=== PATIENT | female | born 1965 | race Caucasian/White ===

== ENCOUNTER 2017-03-27 12:37 | Inpatient (IN) | payer MEDICARE ==
[~2017-03-27] VITALS: Ht 157.5 cm; Wt 130.4 kg
[2017-03-27] VITALS (10 sets, daily range): BP systolic 124–145; BP diastolic 61–82; PULSE 89–110; RESP 15–20; TEMP 98.2–98.7; O2SAT 93–99
[~2017-03-27 12:37] MED LIST: ALBU2.5I INH; ALLE10TA5 PO; ALPR1TAB3 PO; ATEN-100 PO; BENZ100 PO; CARI350T19 PO; CEFU1TAB43 PO; LEVA500T PO; LORT7.5T3 PO; OMPR20CCR PO; PRED10PA PO; SUMA50 PO; ZOLO50TA PO
--- NOTE | 2017-03-27 12:50 | PD ---
HPI Chief Complaint: Respiratory Symptoms Time Seen by Provider: 12:50 Travel History International Travel<30 days: No Contact w/Intl Traveler<30days: No Traveled to known affect area: No History of Present Illness HPI 51-year-old female with history of seizure disorder, COPD, arthritis, obesity, presents to emergency department for evaluation of worsening shortness of breath. Patient states over the last week she has had worsening shortness of breath and a productive cough. She states today she developed a sharp left- sided chest pain with associated dizziness. States this is typically not how her COPD exacerbations act. She contacted [facility]. En route she has had 125 mg of Solu-Medrol IV, 3 DuoNeb treatments without any relief of her respiratory symptoms.. States she has felt febrile and chilled. Nauseous without vomiting. Currently the patient states she is not having any pain. She has no other symptoms to report. PFSH Past Medical History Anemia: Yes Arthritis: Yes Asthma: Yes Anxiety: Yes Heart Rhythm Problems: Yes (HX OF PSVT) COPD: Yes Diminished Hearing: No Gastrointestinal Disorders: Yes (IBS) Immunizations Current: Yes Seizures: Yes Sleep Apnea: Yes : 4 Para: 2 Miscarriage: 1 : 1 Ovarian Cysts: Yes Dilation and Curettage (D&C): Yes () Tubal Ligation: Yes (1994) Past Surgical History Neurologic Surgery: Yes (CYST ON THE CEREBELLUM ) Social History Alcohol Use: No Tobacco Use: Yes (TRYING TO QUIT) Substance Use: No Allergies-Medications (Allergen,Severity, Reaction): Uncoded Allergies: CODIENE (Allergy, Mild, VOMITTING, 03/27/17) Reported Meds & Prescriptions Reported Meds & Active Scripts Active Reported Albuterol Neb (Albuterol Sulfate) 2.5 Mg/3 Ml Neb 2.5 Mg NEB Q4HR NEB PRN Alprazolam 1 Mg Tab 1 Mg PO BID Tenormin (Atenolol) 50 Mg Tab 50 Mg PO HS Omeprazole 20 Mg Tab 20 Mg PO DAILY Sertraline (Sertraline HCl) 100 Mg Tab 100 Mg PO DAILY Imitrex (Sumatriptan Succinate) 100 Mg Tab 100 Mg PO ONCE PRN If a satisfactory response has not been obtained at 2 hours, a second dose may be administered Ventolin Hfa 18 GM Inh (Albuterol Sulfate) 90 Mcg/Act Aer 2 Puff INH Q4-6H PRN Gabapentin 300 Mg Cap 300 Mg PO TID Phenergan (Promethazine HCl) 25 Mg Tablet 25 Mg PO Q8HR PRN Tessalon Perles (Benzonatate) 100 Mg Cap 100 Mg PO TID PRN Benadryl Allergy (Diphenhydramine HCl) 25 Mg Tablet 25 Mg PO BID PRN Mapap (Acetaminophen) 500 Mg Tab 500 Mg PO Q4HR Review of Systems Except as stated in HPI: all other systems reviewed are Neg Physical Exam Narrative GENERAL: Obese female patient, sitting up in bed, slightly tripodded, but in no acute distress. Pt has a barking, non-productive cough SKIN: Focused skin assessment warm/dry. HEAD: Atraumatic. Normocephalic. EYES: Pupils equal and round. No scleral icterus. No injection or drainage. ENT: No nasal bleeding or discharge. Mucous membranes pink and moist. NECK: Trachea midline. No JVD. CARDIOVASCULAR: Elevated rate and rhythm. No murmur appreciated. RESPIRATORY: No accessory muscle use. Diminished, coarse, inspiratory and expiratory wheezes throughout. Breath sounds equal bilaterally. GASTROINTESTINAL: Abdomen soft, non-tender, nondistended. Hepatic and splenic margins not palpable. MUSCULOSKELETAL: No obvious deformities. No clubbing. No cyanosis. No edema. NEUROLOGICAL: Awake and alert. No obvious cranial nerve deficits. Motor grossly within normal limits. Normal speech. PSYCHIATRIC: Appropriate mood and affect; insight and judgment normal. Data Data Last Documented VS Vital Signs Date Time Temp Pulse Resp B/P Pulse Ox O2 Delivery O2 Flow Rate FiO2 03/27/17 12:58 98.7 89 16 134/73 Room Air 03/27/17 12:58 98 2 03/27/17 12:53 21 Orders Complete Blood Count With Diff (03/27/17 12:49) Basic Metabolic Panel (Bmp) (03/27/17 12:49) B-Type Natriuretic Peptide (03/27/17 12:49) Act Partial Throm Time (Ptt) (03/27/17 12:49) Prothrombin Time / Inr (Pt) (03/27/17 12:49) Ckmb (Isoenzyme) Profile (03/27/17 12:49) Troponin I (03/27/17 12:49) Urinalysis - C+S If Indicated (03/27/17 12:49) Iv Access Insert/Monitor (03/27/17 12:49) Electrocardiogram (03/27/17 12:49) Ecg Monitoring (03/27/17 12:49) Oximetry (03/27/17 12:49) Oxygen Administration (03/27/17 12:49) Chest, Single Ap (03/27/17 12:49) Sodium Chloride 0.9% Flush (Ns Flush) (03/27/17 13:00) Albuterol-Ipratropium Neb (Duoneb Neb) (03/27/17 14:00) Arterial Blood Gas (Abg) (03/27/17 ) Albuterol-Ipratropium Neb (Duoneb Neb) (03/27/17 14:45) Admit Order (Ed Use Only) (03/27/17 16:06) Labs Laboratory Tests Test 03/27/17 03/27/17 13:10 14:05 White Blood Count 7.3 TH/MM3 Red Blood Count 4.08 MIL/MM3 Hemoglobin 12.1 GM/DL Hematocrit 35.7 % Mean Corpuscular Volume 87.5 FL Mean Corpuscular Hemoglobin 29.6 PG Mean Corpuscular Hemoglobin 33.8 % Concent Red Cell Distribution Width 18.0 % Platelet Count 126 TH/MM3 Mean Platelet Volume 8.9 FL Neutrophils (%) (Auto) 59.1 % Lymphocytes (%) (Auto) 27.1 % Monocytes (%) (Auto) 6.4 % Eosinophils (%) (Auto) 6.3 % Basophils (%) (Auto) 1.1 % Neutrophils # (Auto) 4.3 TH/MM3 Lymphocytes # (Auto) 2.0 TH/MM3 Monocytes # (Auto) 0.5 TH/MM3 Eosinophils # (Auto) 0.5 TH/MM3 Basophils # (Auto) 0.1 TH/MM3 CBC Comment DIFF FINAL Differential Comment Prothrombin Time 10.7 SEC Prothromb Time International 1.0 RATIO Ratio Activated Partial 28.0 SEC Thromboplast Time Sodium Level 139 MEQ/L Potassium Level 3.7 MEQ/L Chloride Level 103 MEQ/L Carbon Dioxide Level 28.2 MEQ/L Anion Gap 8 MEQ/L Blood Urea Nitrogen 7 MG/DL Creatinine 0.86 MG/DL Estimat Glomerular Filtration 70 ML/MIN Rate Random Glucose 122 MG/DL Calcium Level 8.7 MG/DL Total Creatine Kinase 79 U/L Troponin I LESS THAN 0.02 NG/ML B-Type Natriuretic Peptide 17 PG/ML Blood Gas Puncture Site RT BRACHIAL Blood Gas Patient Temperature 98.6 Blood Gas HCO3 29 mmol/L Blood Gas Base Excess 4.3 mmol/L Blood Gas Oxygen Saturation 88 % Arterial Blood pH 7.42 Arterial Blood Partial 44 mmHg Pressure CO2 Arterial Blood Partial 58 mmHG Pressure O2 Arterial Blood Oxygen Content 14.5 Vol % Arterial Blood 1.9 % Carboxyhemoglobin Arterial Blood Methemoglobin 0.6 % Blood Gas Hemoglobin 11.7 G/DL Oxygen Delivery Device RA SIDDIQUI Medical Decision Making Medical Screen Exam Complete: Yes Emergency Medical Condition: Yes Medical Record Reviewed: Yes Differential Diagnosis COPD exacerbation versus pneumonia versus influenza versus CHF exacerbation versus neoplasm Narrative Course 51 year-old female presents to the emergency department for evaluation COPD exacerbation. Laboratory Tests Test 03/27/17 03/27/17 13:10 14:05 White Blood Count 7.3 TH/MM3 Red Blood Count 4.08 MIL/MM3 Hemoglobin 12.1 GM/DL Hematocrit 35.7 % Mean Corpuscular Volume 87.5 FL Mean Corpuscular Hemoglobin 29.6 PG Mean Corpuscular Hemoglobin 33.8 % Concent Red Cell Distribution Width 18.0 % Platelet Count 126 TH/MM3 Mean Platelet Volume 8.9 FL Neutrophils (%) (Auto) 59.1 % Lymphocytes (%) (Auto) 27.1 % Monocytes (%) (Auto) 6.4 % Eosinophils (%) (Auto) 6.3 % Basophils (%) (Auto) 1.1 % Neutrophils # (Auto) 4.3 TH/MM3 Lymphocytes # (Auto) 2.0 TH/MM3 Monocytes # (Auto) 0.5 TH/MM3 Eosinophils # (Auto) 0.5 TH/MM3 Basophils # (Auto) 0.1 TH/MM3 CBC Comment DIFF FINAL Differential Comment Prothrombin Time 10.7 SEC Prothromb Time International 1.0 RATIO Ratio Activated Partial 28.0 SEC Thromboplast Time Sodium Level 139 MEQ/L Potassium Level 3.7 MEQ/L Chloride Level 103 MEQ/L Carbon Dioxide Level 28.2 MEQ/L Anion Gap 8 MEQ/L Blood Urea Nitrogen 7 MG/DL Creatinine 0.86 MG/DL Estimat Glomerular Filtration 70 ML/MIN Rate Random Glucose 122 MG/DL Calcium Level 8.7 MG/DL Total Creatine Kinase 79 U/L Troponin I LESS THAN 0.02 NG/ML B-Type Natriuretic Peptide 17 PG/ML Blood Gas Puncture Site RT BRACHIAL Blood Gas Patient Temperature 98.6 Blood Gas HCO3 29 mmol/L Blood Gas Base Excess 4.3 mmol/L Blood Gas Oxygen Saturation 88 % Arterial Blood pH 7.42 Arterial Blood Partial 44 mmHg Pressure CO2 Arterial Blood Partial 58 mmHG Pressure O2 Arterial Blood Oxygen Content 14.5 Vol % Arterial Blood 1.9 % Carboxyhemoglobin Arterial Blood Methemoglobin 0.6 % Blood Gas Hemoglobin 11.7 G/DL Oxygen Delivery Device RA Last Impressions Chest X-Ray 03/27/17 1249 Signed Impressions: Service Date/Time: March 13:21 - CONCLUSION: Normal examination. Fabián Mesa MD Patient has been given 3 DuoNeb treatments in route along with IV Solu-Medrol. Patient has been given 3 more treatments here in the emergency department without any significant improvement. I discussed the patient my attending physician was also assessed the patient. at this point I think the chest pain is likely due to her cough, costochondritis or pleuritic pain however we feel that the patient will benefit from observation, scheduled DuoNeb and steroid treatment. Serial troponins could also be done to rule out cardiac etiology. Plan is discussed with the patient she is in agreement with this plan of care. A call has been placed [facility] for admission. Diagnosis Primary Impression: COPD exacerbation Admitting Information Admitting Physician Requests: Observation Condition: Stable Shawna Almonte Mar 27, 2017 12:50 COPD exacerbation Admitting Information Admitting Physician Requests: Observation Condition: Stable Shawna Almonte Mar 27, 2017 12:50
[2017-03-27] MEDS ORDERED: SODIUM CHLORIDE 0.9% FLUSH 10 ML FLUSH IVF PRN (13:00)
[2017-03-27 13:29] LABS: AUTOMATED NEUTROPHIL # 4.3 TH/MM3 (1.8-7.7); BASOPHIL # 0.1 TH/MM3 (0-0.2); BASOPHIL % 1.1 % (0.0-2.0); EOSINOPHIL # 0.5 TH/MM3 (0-0.4); EOSINOPHIL % 6.3 % (0.0-4.0); HEMATOCRIT 35.7 % (35.0-46.0); HEMO FLAGS DIFF FINAL; LYMPH % 27.1 % (9.0-44.0); MEAN CELL VOLUME 87.5 FL (80.0-100.0); MEAN CORPUSCULAR HEMOGLOBIN 29.6 PG (27.0-34.0); MEAN CORPUSCULAR HGB CONC 33.8 % (32.0-36.0); MONO % 6.4 % (0.0-8.0); NEUT % 59.1 % (16.0-70.0); PLATELET COUNT 126 TH/MM3 (150-450); RED BLOOD COUNT 4.08 MIL/MM3 (4.00-5.30); WHITE BLOOD COUNT 7.3 TH/MM3 (4.0-11.0)
[2017-03-27 13:41] LABS: PROTHROMBIN TIME - PATIENT 10.7 SEC (9.8-11.6)
[2017-03-27 13:56] LABS: ANION GAP 8 MEQ/L (5-15); BICARBONATE 28.2 MEQ/L (21.0-32.0); BLOOD UREA NITROGEN 7 MG/DL (7-18); CHLORIDE 103 MEQ/L (98-107); CREATINE KINASE 79 U/L (26-192); GLOMERULAR FILTRATION RATE 70 ML/MIN (>89); POTASSIUM 3.7 MEQ/L (3.5-5.1); SODIUM (NA) 139 MEQ/L (136-145)
--- NOTE | 2017-03-27 13:59 | RADRPT ---
EXAM DATE/TIME: 03/27/2017 13:21 [facility] COMPARISON: CHEST PA & LAT, December 17, 2013, 9:32. INDICATIONS : Chest pain. MEDICAL HISTORY : Chronic obstructive pulmonary disease. SURGICAL HISTORY : None. ENCOUNTER: Initial ACUITY: 1 day PAIN SCORE: 8/10 LOCATION: Left upper chest FINDINGS: A single view of the chest demonstrates the lungs to be symmetrically aerated without evidence of mas s, infiltrate or effusion. The cardiomediastinal contours are unremarkable. Osseous structures are intact. CONCLUSION: Normal examination. Fabián Mesa MD on March 27, 2017 at 13:58 Board Certified Radiologist. This report was verified electronically.
[2017-03-27] MEDS ORDERED: RESP: ALBUTEROL 2.5 MG/IPRATROPIUM 0.5 MG NEB (SCH) NEB ONE ×3 (14:00→16:30)
[2017-03-27 14:12] LABS: BLOOD GAS BASE EXCESS 4.3 mmol/L (-2-2); BLOOD GAS CARBOXYHEMOGLOBIN 1.9 % (0-4); BLOOD GAS HCO3 29 mmol/L (22-26); BLOOD GAS METHEMOGLOBIN 0.6 % (0-2); BLOOD GAS O2 HGB SATURATION 88 % (90-100); BLOOD GAS OXYGEN CONTENT 14.5 Vol % (12.0-20.0); BLOOD GAS PCO2 44 mmHg (38-42); BLOOD GAS PO2 58 mmHG (61-120); BLOOD GAS TOTAL HGB 11.7 G/DL (12.0-16.0); CRITICAL VALUE YES; OXYGEN DEVICE RA; TEMP CORR TO 98.6
[2017-03-27 14:13] LABS: DRAW SITE RT BRACHIAL; NUMBER OF ARTERIAL PUNCTURES 1; STAT YES; ULNAR PULSE Y
[2017-03-27] MEDS ORDERED: GABA300C5 PO (15:59)
[2017-03-27] MEDS ORDERED: MAPA500T PO (15:59)
[2017-03-27] MEDS ORDERED: IMIT100T PO (15:59)
[2017-03-27] MEDS ORDERED: BENZ100 PO (15:59)
[2017-03-27] MEDS ORDERED: SERT-129 PO (15:59)
[2017-03-27] MEDS ORDERED: PROM25TA10 PO (15:59)
[2017-03-27] MEDS ORDERED: OMEP20TA PO (15:59)
[2017-03-27] MEDS ORDERED: BENA25TA6 PO (15:59)
[2017-03-27] MEDS ORDERED: VENTAER INH (15:59)
[2017-03-27] MEDS ORDERED: ATEN1TAB74 PO (16:00)
[2017-03-27] MEDS ORDERED: ALBU0.08 NEB (16:00)
[2017-03-27] MEDS ORDERED: ALPR1TAB3 PO (16:00)
[2017-03-27] MEDS ORDERED: SODIUM CHLORIDE 0.9% FLUSH 10 ML FLUSH IV FLUSH PRN (17:15)
[2017-03-27] MEDS ORDERED: RESP: ALBUTEROL 2.5 MG/3 ML NEB (PRN) INH (17:15)
--- NOTE | 2017-03-27 18:02 | HHI.HP ---
HPI Service [facility] Primary Care Physician Denys Lamas MD Admission Diagnosis COPD EXACERBATION/ CHEST PAIN Diagnoses: Chief Complaint: SOB Cough Chest pain Travel History International Travel<30 Days: No Contact w/Intl Traveler <30 Da: No Traveled to Known Affected Are: No History of Present Illness Written by Dotty Molina PA-C acting as scribe for Dr. Mandujano on 03/27/17 at 17:09. This is a 51-year-old female with past medical history significant for COPD who recently quit smoking 1 month ago, asthma, TRACY not on CPAP, morbid obesity, history of PSVT, anemia, anxiety, IBS, DDD cervical and lumbar spine and reported history of RA but not on any DMARDs who presents to [facility] ED with complaints of progressive shortness of breath and cough with productive sputum for the past week. She also reports associated fever and chills, dizziness and nausea. Patient reports that her breathing became much worse today and she developed a sharp 10 out of 10 nonradiating left-sided chest pain. She denies any associated vomiting, diaphoresis or palpitations. She asked for her son to call [phone]. After their arrival, she received several breathing treatments as well as IV steroids. Her chest pain improved as did her breathing. She continues to have some discomfort with cough and deep inspiration. Patient is no longer followed by research geologist due to insurance issues. She is not on any maintenance bronchodilator therapy. Patient also recalls one week ago, while driving back from [place], she developed sudden onset of blurry vision, slurred speech and confusion that was followed by lethargy. In the ED, patient's chest x-ray was unremarkable. ABG was indicative of hypoxic respiratory failure. She is afebrile. White count is within normal limits. RR is 16. BNP 17. Glucose slightly elevated at 122 but the patient received steroids. 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 Past Surgical History Tubal ligation Tonsillectomy Reported Medications Albuterol Neb (Albuterol Sulfate) 2.5 Mg/3 Ml Neb 2.5 Mg NEB Q4HR NEB PRN Alprazolam 1 Mg Tab 1 Mg PO BID Tenormin (Atenolol) 50 Mg Tab 50 Mg PO HS Omeprazole 20 Mg Tab 20 Mg PO DAILY Sertraline (Sertraline HCl) 100 Mg Tab 100 Mg PO DAILY Imitrex (Sumatriptan Succinate) 100 Mg Tab 100 Mg PO ONCE PRN If a satisfactory response has not been obtained at 2 hours, a second dose may be administered Ventolin Hfa 18 GM Inh (Albuterol Sulfate) 90 Mcg/Act Aer 2 Puff INH Q4-6H PRN Gabapentin 300 Mg Cap 300 Mg PO TID Phenergan (Promethazine HCl) 25 Mg Tablet 25 Mg PO Q8HR PRN Tessalon Perles (Benzonatate) 100 Mg Cap 100 Mg PO TID PRN Benadryl Allergy (Diphenhydramine HCl) 25 Mg Tablet 25 Mg PO BID PRN Mapap (Acetaminophen) 500 Mg Tab 500 Mg PO Q4HR Allergies: Coded Allergies: Codeine (Unverified Allergy, Mild, VOMITING, 03/28/17) Uncoded Allergies: CODIENE (Allergy, Mild, VOMITTING, 03/27/17) Active Ordered Medications Current Medications Medications (Trade) Dose Ordered Sig/Devin Route Start Time Stop Time Status Last Admin (NS Flush) 2 ml UNSCH PRN IVF 03/27/17 13:00 Family History Father, coronary artery disease, [place] in his 50s, history of TIAs, CHF Grandmother, alive at age 96, Alzheimer's dementia Social History Patient has history of tobacco use of pack per day since she was a teenager. She quit approximately 1 month ago. She denies any alcohol use or illicit drug use. She is . Physical Exam Vital Signs Vital Signs Date Time Temp Pulse Resp B/P Pulse Ox O2 Delivery O2 Flow Rate FiO2 03/27/17 12:58 98.7 89 16 134/73 Room Air 03/27/17 12:58 98 Nasal Cannula 2 03/27/17 12:58 98.7 89 16 134/73 93 Room Air 03/27/17 12:58 89 18 98 Nasal Cannula 2 03/27/17 12:53 97 21 Physical Exam GENERAL: This is a well-nourished, well-developed obese patient, in no apparent distress. Awake and alert. Able to speak complete sentences without any difficulty. SKIN: No rashes, ecchymoses or lesions. Cool and dry. HEAD: Atraumatic. Normocephalic. No temporal or scalp tenderness. EYES: Pupils equal round and reactive. Extraocular motions intact. No scleral icterus. No injection or drainage. ENT: Nose without bleeding, purulent drainage or septal hematoma. Throat without erythema, tonsillar hypertrophy or exudate. Uvula midline. Airway patent. NECK: Trachea midline. No lymphadenopathy. Supple, nontender, no meningeal signs. CARDIOVASCULAR: Regular rate and rhythm without murmurs, gallops, or rubs. Left sided anterior chest pain reproducible on exam. RESPIRATORY: Tight. Expiratory wheezing noted throughout. GASTROINTESTINAL: Abdomen soft, non-tender, nondistended. No hepato-splenomegaly , or palpable masses. No guarding. MUSCULOSKELETAL: Extremities without clubbing, cyanosis, or edema. No joint tenderness, effusion, or edema noted. No calf tenderness. NEUROLOGICAL: Awake and alert. Able to move all extremities. No focal neurologic findings appreciated. Normal speech. Laboratory Laboratory Tests Test 03/27/17 03/27/17 13:10 14:05 White Blood Count 7.3 Red Blood Count 4.08 Hemoglobin 12.1 Hematocrit 35.7 Mean Corpuscular Volume 87.5 Mean Corpuscular Hemoglobin 29.6 Mean Corpuscular Hemoglobin 33.8 Concent Red Cell Distribution Width 18.0 Platelet Count 126 Mean Platelet Volume 8.9 Neutrophils (%) (Auto) 59.1 Lymphocytes (%) (Auto) 27.1 Monocytes (%) (Auto) 6.4 Eosinophils (%) (Auto) 6.3 Basophils (%) (Auto) 1.1 Neutrophils # (Auto) 4.3 Lymphocytes # (Auto) 2.0 Monocytes # (Auto) 0.5 Eosinophils # (Auto) 0.5 Basophils # (Auto) 0.1 CBC Comment DIFF FINAL Differential Comment Prothrombin Time 10.7 Prothromb Time International 1.0 Ratio Activated Partial 28.0 Thromboplast Time Sodium Level 139 Potassium Level 3.7 Chloride Level 103 Carbon Dioxide Level 28.2 Anion Gap 8 Blood Urea Nitrogen 7 Creatinine 0.86 Estimat Glomerular Filtration 70 Rate Random Glucose 122 Calcium Level 8.7 Total Creatine Kinase 79 Troponin I LESS THAN 0.02 B-Type Natriuretic Peptide 17 Blood Gas Puncture Site RT BRACHIAL Blood Gas Patient Temperature 98.6 Blood Gas HCO3 29 Blood Gas Base Excess 4.3 Blood Gas Oxygen Saturation 88 Arterial Blood pH 7.42 Arterial Blood Partial 44 Pressure CO2 Arterial Blood Partial 58 Pressure O2 Arterial Blood Oxygen Content 14.5 Arterial Blood 1.9 Carboxyhemoglobin Arterial Blood Methemoglobin 0.6 Blood Gas Hemoglobin 11.7 Oxygen Delivery Device RA Result Diagram: 03/27/17 1310 03/27/17 1310 Imaging Current Medications Medications (Trade) Dose Ordered Sig/Devin Route Start Time Stop Time Status Last Admin (NS Flush) 2 ml UNSCH PRN IVF 03/27/17 13:00 Assessment and Plan Assessment and Plan 51-year-old female with past medical history significant for COPD who recently quit smoking 1 month ago, asthma, TRACY not on CPAP, morbid obesity, history of PSVT, anemia, anxiety, IBS, DDD cervical and lumbar spine and reported history of RA but not on any DMARDs who presents to [facility] ED with complaints of progressive shortness of breath and cough with productive sputum for the past week. Acute hypoxic respiratory failure COPD exacerbation H/O Asthma TRACY s/p sleep study 2-3 years ago, no CPAP use - CXR personally reviewed and no evidence of active cardiopulmonary disease - ABG ph 7.42, O2 sat 88, pCO2 44, pO2 58 - DuoNeb scheduled - Not on any maintenance therapy - IV methylprednisolone 60mg IV q6h - IV Levaquin 750mg q24h - sputum culture - obtain influenza A/B antigen - Consult pulmonology - Consult COPD educator - continue supplemental oxygen to maintain O2 sats above 92% Episode of slurred speech, blurry vision, confusion - possible TIA - Obtain CT of the brain without contrast - Echocardiogram - Ultrasound carotid arteries Chest pain - atypical - Reproducible on exam - EKG personally reviewed, NSR - suspect musculoskeletal in origin - Unable to tolerate aspirin secondary history of Eleonora's syndrome - Initial troponin unremarkable. Continue to cycle cardiac enzymes - Monitor DVT prophylaxis - Lovenox 40 mg subcutaneous - Bilateral SCDs Other chronic medical conditions include IBS, GERD, RA, h/o seizures on Soma, arthritis, PSVT, anemia, RSD and DDD cervical and lumbar spine: Stable at this time and will continue home medications as indicated. This note was transcribed by jana Molina. I, Dr. Moose Martinez personally performed the history, physical exam, and medical decision making; and confirmed the accuracy of the information in the transcribed note. Authenticated by Dr. Moose Martinez on 03/27/17 at 18:44. Physician Certification 2 Midnight Certification Type: Admission for Inpatient Services Order for Inpatient Services The services are ordered in accordance with Medicare regulations or non- Medicare payer requirements, as applicable. In the case of services not specified as inpatient-only, they are appropriately provided as inpatient services in accordance with the 2-midnight benchmark. Estimated LOS (days): 3 3 days is the estimated time the patient will need to remain in the hospital, assuming treatment plan goals are met and no additional complications. Post-Hospital Plan: Not yet determined Dotty Molina Mar 27, 2017 18:02 Moose Herbert MD Mar 27, 2017 18:44
--- NOTE | 2017-03-27 19:20 | RADRPT ---
EXAM DATE/TIME: 03/27/2017 18:31 [facility] COMPARISON: No previous studies available for comparison. INDICATIONS : Blurred vision trouble with speech. RADIATION DOSE: 41.33 CTDIvol (mGy) MEDICAL HISTORY : Seizures. PSVT,CYST ON CEREBELLUM SURGICAL HISTORY : Tubal ligation. ENCOUNTER: Initial ACUITY: 2 days PAIN SCALE: 0/10 LOCATION: cranial TECHNIQUE: Multiple contiguous axial images were obtained of the head. Using automated exposure control and adj ustment of the mA and/or kV according to patient size, radiation dose was kept as low as reasonably a chievable to obtain optimal diagnostic quality images. DICOM format image data is available electro nically for review and comparison. FINDINGS: CEREBRUM: The ventricles are normal for age. No evidence of midline shift, mass lesion, hemorrhage or acute in farction. No extra-axial fluid collections are seen. POSTERIOR FOSSA: The cerebellum and brainstem are intact. The 4th ventricle is midline. The cerebellopontine angle i s unremarkable. EXTRACRANIAL: The visualized portion of the orbits is intact. SKULL: The calvaria is intact. No evidence of skull fracture. CONCLUSION: 1. Normal appearance of the brain. 2. Minimal mucosal thickening in the maxillary sinuses. Eze Michel MD on March 27, 2017 at 19:18 Board Certified Radiologist. This report was verified electronically.
--- NOTE | 2017-03-27 19:38 | RADRPT ---
EXAM DATE/TIME: 03/27/2017 19:01 [facility] COMPARISON: No previous studies available for comparison. INDICATIONS : Transient ischemic attack. MEDICAL HISTORY : Chronic obstructive pulmonary disease. Seizures. Irregular heartbeat. Asthma. IBS. Ovarian cysts. R heumatoid arthritis. Anxiety. Anemia. SURGICAL HISTORY : Tonsillectomy. Tubal ligation. Dilation and curettage. ENCOUNTER: Initial ACUITY: 1 day PAIN SCORE: 0/10 LOCATION: Bilateral neck PEAK SYSTOLIC VELOCITIES (cm/sec): ICA/CCA RATIO: Right: 0.9 Left: 1.2 ICA: Right: 108 Left: 130 CCA: Right: 115 Left: 104 ECA: Right: 207 Left: 118 VERTEBRAL: Right: 83 antegrade Left: 138 antegrade Elevated flow velocities and ICA/CCA ratios have been found to correlate with increased degrees of vessel stenosis, calculated as percentage of diameter relative to a normal segment of distal ICA/CCA FINDINGS: RIGHT CAROTID: No significant stenosis is visualized. The waveforms are within normal limits. LEFT CAROTID: No significant stenosis is visualized. The waveforms are within normal limits. VERTEBRAL ARTERIES: Antegrade flow is seen in both vertebral arteries. MISCELLANEOUS: None. CONCLUSION: 1. No evidence for hemodynamically significant stenosis. Eze Michel MD on March 27, 2017 at 19:37 Board Certified Radiologist. This report was verified electronically.
[2017-03-27] MEDS: methylPREDNISolone SOD SUCC 125 MG/2 ML VIAL IVP SCH (19:47)
[2017-03-27] MEDS: RESP: ALBUTEROL 2.5 MG/IPRATROPIUM 0.5 MG NEB (SCH) INH ×2 (19:50→23:59)
[2017-03-27] MEDS: BUDESONIDE-FORMOTEROL 160/4.5 MCG INHALER INH SCH (21:00)
[2017-03-27] MEDS: ENOXAPARIN SODIUM 40 MG/0.4 ML SYRINGE SQ SCH (21:12)
[2017-03-27] MEDS: LEVOFLOXACIN 750 MG PREMIX INJ 150 ML IV SCH (21:12)
[2017-03-27] MEDS: SODIUM CHLORIDE 0.9% FLUSH 10 ML FLUSH IV FLUSH SCH (21:13)
[2017-03-27] MEDS: MONTELUKAST SODIUM 10 MG TAB PO SCH (21:58)
--- NOTE | 2017-03-27 23:46 | MB ---
cc: GAY BERGER DATE OF CONSULTATION 03/27/17 REASON FOR CONSULTATION Respiratory distress and COPD. HISTORY OF PRESENT ILLNESS This is a 51-year-old white female who is overweight with a history of COPD, chronic wheezing and obstructive sleep apnea. She has been admitted through the emergency room with left-sided chest pain, shortness breath and wheezing. The patient has been getting increasing coughing spells and shortness of breath which worsened over the past 3 days and in spite of being on steroids and nebulizer she failed to improve and thus came to the hospital since she was having pains along the left chest and back. She denied hemoptysis. Denied fevers or chills. Upon arrival, she had a chest x-ray which reportedly showed no active infiltrates. The patient has now been started on IV Solu-Medrol, IV Levaquin and oxygen at 2 liters. PAST MEDICAL HISTORY Past history includes history of chronic bronchitis and asthma. History of arthritis of her extremities and anemia. History of gastroesophageal reflux. She has had sleep apnea and history for seizures and has had ovarian cysts resected and a tubal ligation done as well as a D&C. 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 HABITS The patient smoked half to one-pack per day since age 12 and quit 2 months ago. Alcohol use none. ALLERGIES Codeine MEDICATION LIST 1. Xanax 1 milligrams b.i.d. 2. Tenormin 50 milligrams at bedtime. 3. Omeprazole 20 milligrams a day. 4. Sertraline 100 milligrams daily. 5. Imitrex 100 milligrams p.r.n. 6. Ventolin 2 puffs p.r.n. 7. Gabapentin 300 milligrams t.i.d. 8. Nebulized albuterol q.i.d. She is off of inhaled steroids. REVIEW OF SYSTEMS The patient is overweight. She has wheezing. She has postnasal drip. She has cough, epigastric distress. She has urinary frequency. She has no leg swelling. Denies any calf muscle pains but does have some joint pains of her extremities and denies skin lesions. FAMILY HISTORY Essentially noncontributory. PHYSICAL EXAMINATION GENERAL: This obese middle-aged white female who is alert and anxious. VITAL SIGNS: Blood pressure 140/75, pulse 90, respirations 20, temperature 98.5. HEENT: Head normocephalic. Pupils are reactive. Nasal mucosa erythematous. Throat is injected. The ears no inflammation. NECK: Supple. No bruits. CHEST: Distant breath sounds with expiratory wheezes throughout both lung pierre. Prolonged expirations. No crackles on either side. HEART: Sounds are irregular, S1-S2. No murmur. No S3. ABDOMEN: The abdomen is soft, protuberant. No masses or organomegaly or tenderness. Bowel sounds active. EXTREMITIES: Varicosities. No edema. Decreased peripheral pulses. Reflexes are brisk with no gross motor deficits. NEURO: Cranial nerves grossly intact. SKIN: No lesions are noted. The patient is alert, oriented, cooperative. IMPRESSION 1. Asthmatic bronchitis. 2. COPD with acute exacerbation. 3. Exogenous obesity. 4. Obstructive sleep apnea syndrome. 5. Hypertension. PLAN The patient will be continued on O2 at 2 liters to maintain sats over 92, Solu-Medrol IV 60 milligrams q. 6 hours, Levaquin 750 milligrams IV daily, nebulized DuoNeb solution q. 4 hours. Will get a pulmonary function study in the a.m. with bronchodilators. Also get a CBC, basic metabolic profile. A CT scan of the chest to rule out any lung nodules and she will be placed on Symbicort 160/4.5 2 puffs twice daily and Singulair 10 milligrams once daily was added as well. Thank you ___ for this consultation. MD WILFREDO Villanueva/TADEO /6:24 PM /11:33 PM
[2017-03-28] VITALS (9 sets, daily range): BP systolic 129–170; BP diastolic 67–82; PULSE 87–106; RESP 18–22; TEMP 97.9–98.6; O2SAT 91–96
[2017-03-28] MEDS: methylPREDNISolone SOD SUCC 125 MG/2 ML VIAL IVP SCH ×5 (00:46→23:56)
[2017-03-28] MEDS ORDERED: GABAPENTIN 300 MG CAP PO ONE (02:45)
[2017-03-28] MEDS: RESP: ALBUTEROL 2.5 MG/IPRATROPIUM 0.5 MG NEB (SCH) INH ×5 (04:09→19:21)
[2017-03-28] MEDS: GABAPENTIN 300 MG CAP PO SCH ×3 (08:06→17:15)
[2017-03-28] MEDS: SODIUM CHLORIDE 0.9% FLUSH 10 ML FLUSH IV FLUSH SCH ×2 (08:07→20:33)
[2017-03-28] MEDS: BUDESONIDE-FORMOTEROL 160/4.5 MCG INHALER INH SCH ×2 (09:05→20:33)
[2017-03-28 09:56] LABS: AUTOMATED NEUTROPHIL # 9.7 TH/MM3 (1.8-7.7); BASOPHIL % 0.3 % (0.0-2.0); EOSINOPHIL % 0.1 % (0.0-4.0); HEMATOCRIT 37.2 % (35.0-46.0); HEMO FLAGS DIFF FINAL; LYMPHOCYTE # 1.1 TH/MM3 (1.0-4.8); MEAN CELL VOLUME 87.8 FL (80.0-100.0); MEAN CORPUSCULAR HEMOGLOBIN 29.4 PG (27.0-34.0); MEAN CORPUSCULAR HGB CONC 33.5 % (32.0-36.0); MONO % 3.8 % (0.0-8.0); NEUT % 85.8 % (16.0-70.0); PLATELET COUNT 138 TH/MM3 (150-450); RED BLOOD COUNT 4.23 MIL/MM3 (4.00-5.30); RED CELL DISTRIBUTION WIDTH 18.2 % (11.6-17.2); WHITE BLOOD COUNT 11.3 TH/MM3 (4.0-11.0)
[2017-03-28] MEDS ORDERED: BENZONATATE 100 MG CAP PO PRN (10:00)
[2017-03-28] MEDS ORDERED: ALBUTEROL SULFATE 90 MCG/ACT HFA 8 GM INHALER INH PRN (10:00)
[2017-03-28] MEDS ORDERED: RESP: ALBUTEROL 2.5 MG/3 ML NEB (PRN) NEB (10:00)
[2017-03-28] MEDS ORDERED: diphenhydrAMINE HCL 25 MG CAP PO PRN (10:00)
[2017-03-28] MEDS ORDERED: PROMETHAZINE HCL 25 MG TAB PO PRN (10:00)
[2017-03-28] MEDS ORDERED: ALBUTEROL SULFATE 90 MCG/ACT HFA 18 GM INHALER INH PRN (10:20)
[2017-03-28 10:24] LABS: BICARBONATE 25.6 MEQ/L (21.0-32.0); POTASSIUM 3.9 MEQ/L (3.5-5.1)
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
[2017-03-28] MEDS: PANTOPRAZOLE SOD 20 MG DELAYED RELEASE TAB PO SCH (11:35)
[2017-03-28] MEDS: SERTRALINE HCL 100 MG TAB PO SCH (11:35)
[2017-03-28] MEDS: ACETAMINOPHEN 500 MG CPLT PO SCH ×4 (11:39→23:56)
[2017-03-28] MEDS: SUMAtriptan SUCCINATE 50 MG TAB PO PRN (11:41)
[2017-03-28] MEDS ORDERED: GABAPENTIN 300 MG CAP PO SCH (13:00)
--- NOTE | 2017-03-28 14:56 | RADRPT ---
EXAM DATE/TIME: 03/28/2017 13:48 [facility] COMPARISON: CT BRAIN W/O CONTRAST, March 27, 2017, 18:31. INDICATIONS : Slurred speech. CONTRAST: 25 cc Omniscan (gadodiamide) IV MEDICAL HISTORY : Hypertension. SURGICAL HISTORY : Tonsillectomy. Tubal ligation. ENCOUNTER: Initial ACUITY: 2 day PAIN SCORE: 0/10 LOCATION: head TECHNIQUE: Multiplanar, multisequence MRI of the brain was performed both prior to and following the administrat ion of paramagnetic contrast. FINDINGS: CEREBRUM: The ventricles are normal for age. No evidence of midline shift, mass lesion, hemorrhage or acute in farction. No extraaxial fluid collections are seen. The pituitary gland and suprasellar cistern are normal in configuration. WHITE MATTER: No significant signal abnormalities are seen in the white matter. POSTERIOR FOSSA: The cerebellum and brainstem are intact. The 4th ventricle is midline. The cerebellopontine angle is unremarkable. The cerebellar tonsils are normal in position. DIFFUSION IMAGING: No focal areas of restricted diffusion are seen. No evidence of acute infarction. EXTRACRANIAL: The visualized portions of the orbits are unremarkable. Mild disease in the maxillary sinuses. POST-CONTRAST: No abnormal areas of parenchymal or dural enhancement. No evidence of blood-brain barrier breakdown. CONCLUSION: 1. No acute intracranial abnormality. 2. Mucoperiosteal thickening within the maxillary sinuses. Paco Shankar MD on March 28, 2017 at 14:50 Board Certified Radiologist. This report was verified electronically.
--- NOTE | 2017-03-28 14:57 | EKG ---
Date Performed: 03/27/2017 Time Performed: 13:18:27 PTAGE: 51 years EKG: Sinus rhythm NORMAL ECG PREVIOUS TRACING : 12/17/2013 09.24 Compared to prior tracing no significant change DOCTOR: Reinaldo Maldonado Interpretating Date/Time 03/28/2017 14:54:15
--- NOTE | 2017-03-28 15:03 | HHI.PR ---
Subjective Remarks sob improving still coughing denies cp denies fevers/chills tachycardic Objective Vitals Vital Signs Date Time Temp Pulse Resp B/P Pulse Ox O2 Delivery O2 Flow Rate FiO2 03/28/17 12:00 97.9 104 18 129/67 91 03/28/17 08:55 95 03/28/17 08:15 Room Air 03/28/17 08:00 97.9 99 22 170/79 96 03/28/17 07:51 87 03/28/17 04:08 98.4 96 20 140/73 95 03/28/17 04:00 Room Air 03/28/17 00:00 Room Air 03/28/17 00:00 98.2 106 20 151/82 96 03/27/17 22:14 99 03/27/17 22:00 Room Air 03/27/17 21:48 98.2 107 20 135/73 96 03/27/17 21:17 112 20 145/80 96 03/27/17 19:51 96 21 03/27/17 19:47 110 20 140/82 96 Room Air 03/27/17 17:47 99 18 124/61 95 Nasal Cannula 1 I/O 03/27/17 03/27/17 03/27/17 03/28/17 03/28/17 03/28/17 07:00 15:00 23:00 07:00 15:00 23:00 Intake Total 278 ml 484 ml 6 ml Output Total 101 ml Balance 278 ml 383 ml 6 ml Intake Oral 120 ml 480 ml IV Total 158 ml 4 ml 6 ml Output Urine Total 100 ml Stool Total 1 ml Result Diagram: 03/28/1782103/28/17821 Imaging Last Impressions Head Magnetic Resonance Angiography 03/28/17 0000 Signed Impressions: Service Date/Time: Tuesday, March 28, 2017 13:48 - CONCLUSION: posterior cerebral arteries. Tiny basilar artery, likely a developmental appearance Denys Martinez MD Brain MRI 03/28/17 0000 Signed Impressions: Service Date/Time: Tuesday, March 28, 2017 13:48 - CONCLUSION: 1. No acute intracranial abnormality. 2. Mucoperiosteal thickening within the maxillary sinuses. Paco Shankar MD Chest CT 03/27/17 1823 Signed Impressions: Service Date/Time: Tuesday, March 28, 2017 18:56 - CONCLUSION: 1. Basilar linear subsegmental atelectasis versus scarring. 2. Hepatic steatosis. Eze Michel MD Chest X-Ray 03/27/17 1249 Signed Impressions: Service Date/Time: March 13:21 - CONCLUSION: Normal examination. Fabián Mesa MD Head CT 03/27/17 0000 Signed Impressions: Service Date/Time: , March 27, 2017 18:31 - CONCLUSION: 1. Normal appearance of the brain. 2. Minimal mucosal thickening in the maxillary sinuses. Eze Michel MD Carotid Artery Ultrasound 03/27/17 0000 Signed Impressions: Service Date/Time: March 19:01 - CONCLUSION: 1. No evidence for hemodynamically significant stenosis. Eze Michel MD Objective Remarks AAOx3 NAD Mild diffuse expiratory wheezing, much improved from previous day. Medications and IVs Current Medications Medications (Trade) Dose Ordered Sig/Devin Route Start Time Stop Time Status Last Admin (NS Flush) 2 ml BID IV FLUSH 03/27/17 21:00 03/28/17 08:07 Sodium Chloride 2 ml 2 ml UNSCH PRN IV FLUSH 03/27/17 17:15 (Levaquin 750 Mg Premix Inj) 150 ml @ 100 mls/hr Q24H IV 03/27/17 20:00 03/27/17 21:12 (Lovenox Inj) 40 mg Q24H SQ 03/27/17 20:00 03/27/17 21:12 (Symbicort 160-4.5 Inh) 2 puff Q12HR INH 03/27/17 21:00 03/28/17 09:05 (Singulair) 10 mg HS PO 03/27/17 21:00 03/27/17 21:58 (Neurontin) 300 mg TID PO 03/28/17 09:00 03/28/17 17:15 (Tylenol) 500 mg Q4HR PO 03/28/17 12:00 03/28/17 17:16 (Xanax) 1 mg BID PO 03/28/17 21:00 (Tenormin) 50 mg HS PO 03/28/17 21:00 (Tessalon) 100 mg TID PRN PO 03/28/17 10:00 (Phenergan) 25 mg Q8HR PRN PO 03/28/17 10:00 (Zoloft) 100 mg DAILY PO 03/28/17 10:00 03/28/17 11:35 (Imitrex) 100 mg ONCE PRN PO 03/28/17 10:00 04/04/17 09:59 03/28/17 11:41 (Benadryl) 25 mg BID PRN PO 03/28/17 10:00 (Protonix) 20 mg DAILY PO 03/28/17 10:00 03/28/17 11:35 (Ventolin Hfa Inh) 2 puff DAILY PRN INH 03/28/17 10:20 (SoluMEDROL INJ) 40 mg Q6HR IVP 03/29/17 00:00 Urinary Catheter: No Vascular Central Line Catheter: No A/P Assessment and Plan 51-year-old female with past medical history significant for COPD who recently quit smoking 1 month ago, asthma, TRACY not on CPAP, morbid obesity, history of PSVT, anemia, anxiety, IBS, DDD cervical and lumbar spine and reported history of RA but not on any DMARDs who presents to [facility] ED with complaints of progressive shortness of breath and cough with productive sputum for the past week. Acute hypoxic respiratory failure COPD exacerbation H/O Asthma TRACY s/p sleep study 2-3 years ago, no CPAP use - CXR personally reviewed and no evidence of active cardiopulmonary disease - ABG ph 7.42, O2 sat 88, pCO2 44, pO2 58 - DuoNeb scheduled - Not on any maintenance therapy - sputum culture - obtain influenza A/B antigen - negative - Pulmonology consulted. - Consult COPD educator - continue supplemental oxygen to maintain O2 sats above 92% -Continue IV Levaquin and decrease Solumedrol dose to 40 mg IV every 6 hours. Episode of slurred speech, blurry vision, confusion - possible TIA -Appreciate neurology recommendations. -CT of the head shows normal appearance of the brain. Minimal mucosal thickening in the maxillary sinuses. -MRI of the brain did not show any acute intracranial abnormality. -MRI of the brain shows posterior cerebral arteries. Tiny basilar artery. -Carotid artery ultrasound was negative for hemodynamically significant stenosis. -Patient started on Plavix 75 mg by mouth daily. 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 Continue to cycle cardiac enzymes - Monitor Hyperglycemia -Check hemoglobin A1c. Monitor Accu-Cheks and place on SSI with NovoLog. DVT prophylaxis - Lovenox 40 mg subcutaneous - Bilateral SCDs Other chronic medical conditions include IBS, GERD, RA, h/o seizures on Soma, arthritis, PSVT, anemia, RSD and DDD cervical and lumbar spine: Stable at this time and will continue home medications as indicated. Discharge Planning Possible discharge in 1-2 days pending clinical improvement in respiratory status, neurology clearance. Moose Herbert MD Mar 28, 2017 15:03
[2017-03-28] MEDS ORDERED: GADODIAMIDE PF 287 MG/ML 5 ML VIAL (for RAD MRI) IV ONE (16:00)
--- NOTE | 2017-03-28 16:00 | RADRPT ---
EXAM DATE/TIME: 03/28/2017 13:48 [facility] COMPARISON: No previous studies available for comparison. INDICATIONS : Slurred speech. Resloved. MEDICAL HISTORY : Hypertension. SURGICAL HISTORY : Tonsillectomy. ENCOUNTER: Initial ACUITY: 1 week PAIN SCORE: 0/10 LOCATION: cranial Please note a normal MRA of the brain does not entirely exclude the possibility of a small aneurysm, nor the possibility of distal intracranial vessel disease. TECHNIQUE: 3D time of flight MRA was performed. Source images, multiplanar STS MIP, and 3D volume MIP reconstru ctions were reviewed. FINDINGS: The basilar artery is tiny, potentially on a developmental basis in the setting of posterior ce rebral arteries on both sides. The anterior circulation vessels are symmetric, intact and unremarkabl e. There is no evidence of major vessel occlusion. No aneurysm or vascular malformation is identified . CONCLUSION: posterior cerebral arteries. Tiny basilar artery, likely a developmental appearance Denys Martinez MD on March 28, 2017 at 15:55 Board Certified Radiologist. This report was verified electronically.
--- NOTE | 2017-03-28 16:23 | ECHRPT ---
Indication: CVA/TIA CONCLUSIONS Normal left ventricular size. Wall thickness is normal. The left ventricular systolic function is normal with an estimated ejection fraction in the range of 55-60%. Trace mitral valve regurgitation. BP: 140 / 73 HR: 96 Rhythm: Sinus MEASUREMENTS (Male / Female) Normal Values Technical Quality:Fair 2D ECHO LV Diastolic Diameter PLAX 4.7 cm 4.2 - 5.9 / 3.9 - 5.3 cm LV Systolic Diameter PLAX 3.4 cm IVS Diastolic Thickness 1.1 cm 0.6 - 1.0 / 0.6 - 0.9 cm LVPW Diastolic Thickness 0.9 cm 0.6 - 1.0 / 0.6 - 0.9 cm LV Relative Wall Thickness 0.4 RV Internal Dim ED PLAX 1.9 cm LA Systolic Diameter LX 2.9 cm 3.0 - 4.0 / 2.7 - 3.8 cm M-MODE Aortic Root Diameter MM 3.0 cm AV Cusp Separation MM 1.9 cm DOPPLER AV Peak Velocity 246.0 cm/s AV Peak Gradient 24.2 mmHg LVOT Peak Velocity 142.0 cm/s LVOT Peak Gradient 8.1 mmHg Mitral E Point Velocity 117.0 cm/s Mitral A Point Velocity 167.0 cm/s Mitral E to A Ratio 0.7 TR Peak Velocity 197.0 cm/s TR Peak Gradient 15.5 mmHg FINDINGS LEFT VENTRICLE Normal left ventricular size. Wall thickness is normal. The left ventricular systolic function is normal with an estimated ejection fraction in the range of 55-60%. RIGHT VENTRICLE Normal right ventricular size and systolic function. LEFT ATRIUM The left atrial size is normal. RIGHT ATRIUM The right atrial size is normal. ATRIAL SEPTUM Normal atrial septal thickness without atrial level shunting by limited color doppler interrogation. AORTA The aortic root and proximal ascending aorta are normal in size on limited imaging. MITRAL VALVE Trace mitral valve regurgitation. AORTIC VALVE Trileaflet aortic valve. No aortic valve stenosis or regurgitation. TRICUSPID VALVE Structurally normal tricuspid valve. No tricuspid valve stenosis or regurgitation. PULMONARY VALVE The pulmonary valve is not well visualized. VESSELS The inferior vena cava is normal in size. PERICARDIUM No pericardial effusion. Man Tinsley MD, FACC, [facility] – [place] (Electronically Signed) Final Date:28 March 2017 16:22
--- NOTE | 2017-03-28 18:16 | HHI.PR ---
Subjective Remarks She still has wheezing. No fever. Neuro W/U in progress. PFT is pending. On O2 [address] done Objective Vital Signs Date Time Temp Pulse Resp B/P Pulse Ox O2 Delivery O2 Flow Rate FiO2 03/28/17 16:09 94 21 03/28/17 16:00 98.6 101 18 146/75 96 03/28/17 12:00 97.9 104 18 129/67 91 03/28/17 08:55 95 03/28/17 08:15 Room Air 03/28/17 08:00 97.9 99 22 170/79 96 03/28/17 07:51 87 03/28/17 04:08 98.4 96 20 140/73 95 03/28/17 04:00 Room Air 03/28/17 00:00 Room Air 03/28/17 00:00 98.2 106 20 151/82 96 03/27/17 22:14 99 03/27/17 22:00 Room Air 03/27/17 21:48 98.2 107 20 135/73 96 03/27/17 21:17 112 20 145/80 96 03/27/17 19:51 96 21 03/27/17 19:47 110 20 140/82 96 Room Air I/O 03/27/17 03/27/17 03/27/17 03/28/17 03/28/17 03/28/17 07:00 15:00 23:00 07:00 15:00 23:00 Intake Total 278 ml 484 ml 966 ml Output Total 101 ml 1000 ml Balance 278 ml 383 ml -34 ml Intake Oral 120 ml 480 ml 960 ml IV Total 158 ml 4 ml 6 ml Output Urine Total 100 ml 1000 ml Stool Total 1 ml # Bowel Movements 0 Result Diagram: 03/28/1782103/28/17821 Objective Remarks GENERAL: This obese middle-aged white female who is alert and anxious. HEENT: Head normocephalic. Pupils are reactive. Nasal mucosa clear Throat is dry. The ears no inflammation. NECK: Supple. No bruits. CHEST: Distant breath sounds with expiratory wheezes throughout both lung pierre. Prolonged expirations. No crackles on either side. HEART: Sounds are irregular, S1-S2. No murmur. No S3. ABDOMEN: The abdomen is soft, protuberant. No masses or organomegaly or tenderness. Bowel sounds active. EXTREMITIES: Varicosities. No edema. Decreased peripheral pulses. Reflexes are brisk with no gross motor deficits. NEURO: Cranial nerves grossly intact. SKIN: No lesions are noted. The patient is alert, oriented, cooperative. Assessment and Plan Assessment and Plan IMPRESSION 1. Asthmatic bronchitis. 2. COPD with acute exacerbation. 3. Exogenous obesity. 4. Obstructive sleep apnea syndrome. 5. Hypertension. Plan ; 1. Continue Levaquin IV daily 2. Taper solumedrol to 40 mg IV q6h 3. Nebs qid , duoneb 4. O2 at 2 L. 5. PFT ,CBC,IGe level 6. Smoking cessation, Discussed 7. Switch to PO meds in 1 to 2 days if clinically better. Mariela Recinos MD Mar 28, 2017 18:16
--- NOTE | 2017-03-28 19:09 | RADRPT ---
EXAM DATE/TIME: 03/28/2017 18:56 [facility] COMPARISON: CHEST SINGLE AP, March 27, 2017, 13:21. INDICATIONS : Shortness of breath RADIATION DOSE: 9.59 CTDIvol (mGy) MEDICAL HISTORY : Seizures. Cardiovascular disease Asthma SURGICAL HISTORY : Tubal ligation. ENCOUNTER: Initial ACUITY: 1 day PAIN SCALE: 0/10 LOCATION: cranial TECHNIQUE: Volumetric scanning of the chest was performed. Using automated exposure control and adjustment of t he mA and/or kV according to patient size, radiation dose was kept as low as reasonably achievable to obtain optimal diagnostic quality images. DICOM format image data is available electronically for r eview and comparison. Follow-up recommendations for incidentally detected pulmonary nodules are based at a minimum on nodul e size and patient risk factors according to Fleischner Society Guidelines. FINDINGS: Mild linear subsegmental atelectatic changes versus scarring at the lung bases. There is no cons olidation or effusion. No adenopathy. Degenerative changes of the spine are seen. There is no aneurys m. There is hepatic steatosis. Coronary artery calcification. CONCLUSION: 1. Basilar linear subsegmental atelectasis versus scarring. 2. Hepatic steatosis. Eze Michel MD on March 28, 2017 at 19:06 Board Certified Radiologist. This report was verified electronically.
[2017-03-28] MEDS: MONTELUKAST SODIUM 10 MG TAB PO SCH (20:32)
[2017-03-28] MEDS: ATENOLOL 50 MG TAB PO SCH (20:32)
[2017-03-28] MEDS: LEVOFLOXACIN 750 MG PREMIX INJ 150 ML IV SCH (20:32)
[2017-03-28] MEDS: ALPRAZolam 1 MG TAB PO SCH (20:32)
[2017-03-28] MEDS: ENOXAPARIN SODIUM 40 MG/0.4 ML SYRINGE SQ SCH (20:32)
[2017-03-29] VITALS (10 sets, daily range): BP systolic 116–152; BP diastolic 65–78; PULSE 60–83; RESP 18–22; TEMP 97.3–98.3; O2SAT 92–98
[2017-03-29] MEDS: RESP: ALBUTEROL 2.5 MG/IPRATROPIUM 0.5 MG NEB (SCH) INH ×6 (00:57→20:55)
[2017-03-29] MEDS: ACETAMINOPHEN 500 MG CPLT PO SCH ×5 (04:00→20:55)
[2017-03-29] MEDS: methylPREDNISolone SOD SUCC 125 MG/2 ML VIAL IVP SCH ×3 (05:36→17:06)
[2017-03-29 06:44] LABS: AUTOMATED NEUTROPHIL # 10.7 TH/MM3 (1.8-7.7); BASOPHIL % 0.1 % (0.0-2.0); EOSINOPHIL % 0.1 % (0.0-4.0); HEMO FLAGS DIFF FINAL; LYMPH % 8.3 % (9.0-44.0); MEAN CELL VOLUME 87.4 FL (80.0-100.0); MEAN CORPUSCULAR HEMOGLOBIN 29.5 PG (27.0-34.0); MEAN CORPUSCULAR HGB CONC 33.8 % (32.0-36.0); MONO % 4.2 % (0.0-8.0); NEUT % 87.3 % (16.0-70.0); PLATELET COUNT 139 TH/MM3 (150-450); RED CELL DISTRIBUTION WIDTH 18.5 % (11.6-17.2); WHITE BLOOD COUNT 12.2 TH/MM3 (4.0-11.0)
[2017-03-29 06:49] LABS: ANION GAP 7 MEQ/L (5-15); AST (GOT) 13 U/L (15-37); BICARBONATE 28.2 MEQ/L (21.0-32.0); BLOOD UREA NITROGEN 17 MG/DL (7-18); CHLORIDE 104 MEQ/L (98-107); GLOMERULAR FILTRATION RATE 61 ML/MIN (>89); POTASSIUM 4.1 MEQ/L (3.5-5.1); SODIUM (NA) 139 MEQ/L (136-145)
[2017-03-29 06:55] LABS: ALKALINE PHOSPHATASE 60 U/L (45-117); ALT (GPT) 19 U/L (10-53); TOTAL BILIRUBIN ADULT 0.3 MG/DL (0.2-1.0)
[2017-03-29] MEDS: BUDESONIDE-FORMOTEROL 160/4.5 MCG INHALER INH SCH ×2 (08:32→20:56)
[2017-03-29] MEDS: SERTRALINE HCL 100 MG TAB PO SCH (08:33)
[2017-03-29] MEDS: PANTOPRAZOLE SOD 20 MG DELAYED RELEASE TAB PO SCH (08:33)
[2017-03-29] MEDS: GABAPENTIN 300 MG CAP PO SCH ×3 (08:33→17:06)
[2017-03-29] MEDS: SODIUM CHLORIDE 0.9% FLUSH 10 ML FLUSH IV FLUSH SCH ×2 (08:33→20:57)
[2017-03-29] MEDS: ALPRAZolam 1 MG TAB PO SCH ×2 (08:33→20:55)
--- NOTE | 2017-03-29 14:38 | HHI.PR ---
Subjective Remarks sob better pain in left hand is improving has some pain on sides of chest when she coughs denies fevers or chills still coughing Objective Vitals Vital Signs Date Time Temp Pulse Resp B/P Pulse Ox O2 Delivery O2 Flow Rate FiO2 03/29/17 11:54 97.3 60 22 127/78 92 03/29/17 09:16 97 21 03/29/17 08:00 96 Room Air 21 03/29/17 08:00 97.7 60 20 145/65 92 03/29/17 08:00 75 03/29/17 04:00 Room Air 03/29/17 04:00 98.0 83 20 116/65 92 03/29/17 00:57 95 03/29/17 00:08 97.8 75 20 144/66 93 03/29/17 00:00 Room Air 03/28/17 20:00 91 03/28/17 20:00 Room Air 03/28/17 20:00 98.4 99 20 141/67 94 03/28/17 16:09 94 21 03/28/17 16:00 98.6 101 18 146/75 96 I/O 03/28/17 03/28/17 03/28/17 03/29/17 03/29/17 03/29/17 06:59 14:59 22:59 06:59 14:59 22:59 Intake Total 484 ml 966 ml 480 ml 580 ml 360 ml Output Total 101 ml 1000 ml Balance 383 ml -34 ml 480 ml 580 ml 360 ml Intake Oral 480 ml 960 ml 480 ml 580 ml 360 ml IV Total 4 ml 6 ml Output Urine Total 100 ml 1000 ml Stool Total 1 ml # Voids 2 2 3 # Bowel Movements 0 0 1 Result Diagram: 03/29/17 0504 03/29/17 0504 Imaging Last Impressions Head Magnetic Resonance Angiography 03/28/17 0000 Signed Impressions: Service Date/Time: Tuesday, March 28, 2017 13:48 - CONCLUSION: posterior cerebral arteries. Tiny basilar artery, likely a developmental appearance Denys Martinez MD Brain MRI 03/28/17 0000 Signed Impressions: Service Date/Time: Tuesday, March 28, 2017 13:48 - CONCLUSION: 1. No acute intracranial abnormality. 2. Mucoperiosteal thickening within the maxillary sinuses. Paco Shankar MD Chest CT 03/27/17 1823 Signed Impressions: Service Date/Time: Tuesday, March 28, 2017 18:56 - CONCLUSION: 1. Basilar linear subsegmental atelectasis versus scarring. 2. Hepatic steatosis. Eze Michel MD Chest X-Ray 03/27/17 1249 Signed Impressions: Service Date/Time: March 13:21 - CONCLUSION: Normal examination. Fabián Mesa MD Head CT 03/27/17 0000 Signed Impressions: Service Date/Time: March 18:31 - CONCLUSION: 1. Normal appearance of the brain. 2. Minimal mucosal thickening in the maxillary sinuses. Eze Michel MD Carotid Artery Ultrasound 03/27/17 0000 Signed Impressions: Service Date/Time: March 19:01 - CONCLUSION: 1. No evidence for hemodynamically significant stenosis. Eze Michel MD Objective Remarks AAOx3 NAD Mild diffuse expiratory wheezing, much improved from previous day. Medications and IVs Current Medications Medications (Trade) Dose Ordered Sig/Devin Route Start Time Stop Time Status Last Admin (NS Flush) 2 ml BID IV FLUSH 03/27/17 21:00 03/29/17 08:33 Sodium Chloride 2 ml 2 ml UNSCH PRN IV FLUSH 03/27/17 17:15 (Levaquin 750 Mg Premix Inj) 150 ml @ 100 mls/hr Q24H IV 03/27/17 20:00 03/28/17 20:32 (Lovenox Inj) 40 mg Q24H SQ 03/27/17 20:00 03/28/17 20:32 (Symbicort 160-4.5 Inh) 2 puff Q12HR INH 03/27/17 21:00 03/29/17 08:32 (Singulair) 10 mg HS PO 03/27/17 21:00 03/28/17 20:32 (Neurontin) 300 mg TID PO 03/28/17 09:00 03/29/17 12:11 (Tylenol) 500 mg Q4HR PO 03/28/17 12:00 03/29/17 12:11 (Xanax) 1 mg BID PO 03/28/17 21:00 03/29/17 08:33 (Tenormin) 50 mg HS PO 03/28/17 21:00 03/28/17 20:32 (Tessalon) 100 mg TID PRN PO 03/28/17 10:00 (Phenergan) 25 mg Q8HR PRN PO 03/28/17 10:00 (Zoloft) 100 mg DAILY PO 03/28/17 10:00 03/29/17 08:33 (Imitrex) 100 mg ONCE PRN PO 03/28/17 10:00 04/04/17 09:59 03/28/17 11:41 (Benadryl) 25 mg BID PRN PO 03/28/17 10:00 (Protonix) 20 mg DAILY PO 03/28/17 10:00 03/29/17 08:33 (Ventolin Hfa Inh) 2 puff DAILY PRN INH 03/28/17 10:20 (SoluMEDROL INJ) 40 mg Q6HR IVP 03/29/17 00:00 03/29/17 12:11 Urinary Catheter: No Vascular Central Line Catheter: No A/P Assessment and Plan 51-year-old female with past medical history significant for COPD who recently quit smoking 1 month ago, asthma, TRACY not on CPAP, morbid obesity, history of PSVT, anemia, anxiety, IBS, DDD cervical and lumbar spine and reported history of RA but not on any DMARDs who presents to [facility] ED with complaints of progressive shortness of breath and cough with productive sputum for the past week. Acute hypoxic respiratory failure COPD exacerbation H/O Asthma TRACY s/p sleep study 2-3 years ago, no CPAP use - CXR personally reviewed and no evidence of active cardiopulmonary disease - ABG ph 7.42, O2 sat 88, pCO2 44, pO2 58 - DuoNeb scheduled - Not on any maintenance therapy - sputum culture - pending - obtain influenza A/B antigen - negative - Pulmonology consulted. - Consult COPD educator - continue supplemental oxygen to maintain O2 sats above 92% -Continue IV Levaquin and IV Solumedrol at same dose. Episode of slurred speech, blurry vision, confusion - possible TIA -Appreciate neurology recommendations. -CT of the head shows normal appearance of the brain. Minimal mucosal thickening in the maxillary sinuses. -MRI of the brain did not show any acute intracranial abnormality. -MRI of the brain shows posterior cerebral arteries. Tiny basilar artery. -Carotid artery ultrasound was negative for hemodynamically significant stenosis. -Patient started on Plavix 75 mg by mouth daily. 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 Continue to cycle cardiac enzymes - Monitor Hyperglycemia -hemoglobin A1c pending. Monitor Accu-Cheks and place on SSI with NovoLog. Leukocytosis - Likely steroid induced. Continue to monitor CBC. DVT prophylaxis - Lovenox 40 mg subcutaneous - Bilateral SCDs Other chronic medical conditions include IBS, GERD, RA, h/o seizures on Soma, arthritis, PSVT, anemia, RSD and DDD cervical and lumbar spine: Stable at this time and will continue home medications as indicated. Discharge Planning Possible discharge in 1-2 days pending clinical improvement in respiratory status, neurology clearance. Moose Herbert MD Mar 29, 2017 14:38
[2017-03-29] MEDS: SUMAtriptan SUCCINATE 50 MG TAB PO PRN (15:58)
[2017-03-29] MEDS: ACETAMINOPHEN/HYDROcodone 325 MG/5 MG TAB PO PRN ×2 (17:06→22:48)
[2017-03-29] MEDS: LEVOFLOXACIN 750 MG PREMIX INJ 150 ML IV SCH (20:54)
[2017-03-29] MEDS: MONTELUKAST SODIUM 10 MG TAB PO SCH (20:55)
[2017-03-29] MEDS: ENOXAPARIN SODIUM 40 MG/0.4 ML SYRINGE SQ SCH (20:55)
[2017-03-29] MEDS: ATENOLOL 50 MG TAB PO SCH (20:55)
[2017-03-30] VITALS (8 sets, daily range): BP systolic 142–157; BP diastolic 68–73; PULSE 53–86; RESP 18–20; TEMP 97.7–98.7; O2SAT 93–97
[2017-03-30] MEDS: ACETAMINOPHEN 500 MG CPLT PO SCH ×6 (00:12→20:00)
[2017-03-30] MEDS: methylPREDNISolone SOD SUCC 125 MG/2 ML VIAL IVP SCH ×3 (00:12→16:53)
[2017-03-30] MEDS: ACETAMINOPHEN/HYDROcodone 325 MG/5 MG TAB PO PRN ×4 (05:39→20:47)
[2017-03-30 08:03] LABS: AUTOMATED NEUTROPHIL # 9.8 TH/MM3 (1.8-7.7); BASOPHIL # 0.1 TH/MM3 (0-0.2); BASOPHIL % 0.5 % (0.0-2.0); EOSINOPHIL % 0.1 % (0.0-4.0); HEMATOCRIT 35.5 % (35.0-46.0); LYMPHOCYTE # 1.4 TH/MM3 (1.0-4.8); MEAN CELL VOLUME 89.2 FL (80.0-100.0); MEAN CORPUSCULAR HEMOGLOBIN 29.3 PG (27.0-34.0); MEAN CORPUSCULAR HGB CONC 32.9 % (32.0-36.0); MONO % 4.8 % (0.0-8.0); NEUT % 82.6 % (16.0-70.0); PLATELET COUNT 132 TH/MM3 (150-450); RED BLOOD COUNT 3.98 MIL/MM3 (4.00-5.30); RED CELL DISTRIBUTION WIDTH 18.2 % (11.6-17.2); WHITE BLOOD COUNT 11.8 TH/MM3 (4.0-11.0)
[2017-03-30 08:10] LABS: HEMO FLAGS AUTO DIFF
[2017-03-30 08:27] LABS: ALT (GPT) 21 U/L (10-53); ANION GAP 7 MEQ/L (5-15); AST (GOT) 13 U/L (15-37); BICARBONATE 26.8 MEQ/L (21.0-32.0); BLOOD UREA NITROGEN 24 MG/DL (7-18); CHLORIDE 104 MEQ/L (98-107); GLOMERULAR FILTRATION RATE 60 ML/MIN (>89); POTASSIUM 3.8 MEQ/L (3.5-5.1); SODIUM (NA) 138 MEQ/L (136-145)
[2017-03-30 08:30] LABS: ALKALINE PHOSPHATASE 65 U/L (45-117); TOTAL BILIRUBIN ADULT 0.2 MG/DL (0.2-1.0)
[2017-03-30] MEDS: RESP: ALBUTEROL 2.5 MG/IPRATROPIUM 0.5 MG NEB (SCH) INH ×4 (09:36→20:04)
[2017-03-30 09:51] LABS: SCAN/DIFF AUTO DIFF CONFIRMED
[2017-03-30] MEDS: SERTRALINE HCL 100 MG TAB PO SCH (10:19)
[2017-03-30] MEDS: ALPRAZolam 1 MG TAB PO SCH ×2 (10:20→20:41)
[2017-03-30] MEDS: GABAPENTIN 300 MG CAP PO SCH ×3 (10:20→16:53)
[2017-03-30] MEDS: PANTOPRAZOLE SOD 20 MG DELAYED RELEASE TAB PO SCH (10:20)
[2017-03-30] MEDS: BUDESONIDE-FORMOTEROL 160/4.5 MCG INHALER INH SCH ×2 (10:22→20:42)
[2017-03-30] MEDS: SODIUM CHLORIDE 0.9% FLUSH 10 ML FLUSH IV FLUSH SCH ×2 (10:25→20:41)
[2017-03-30 12:47] LABS: HEMOGLOBIN A1a 1.1 %; HEMOGLOBIN A1b 1.8 %; HEMOGLOBIN LA1C 2.3 %; HEMOGLOBIN P3 3.8 %
--- NOTE | 2017-03-30 17:09 | HHI.PR ---
Review/Management Diagnosis Headache Dizziness TIA COPD TRACY PSVT H/o Otoniel syndrome Chronic migraine Plan neurological examination is nonfocal Neurologic investigations are negative for an acute intracranial abnormality Plavix 75 mg daily No aspirin given the history of Eleonora syndrome we'll sign off Please call for questions Thank you for the opportunity to participate in the care of your patient Diagnosis/Plan: Subjective Subjective Comments No acute events reported Patient denies headache or dizziness MRI brain with no acute intracranial abnormality CUS with no evidence of hemodynamically significant stenosis MRA head revealed a small caliber basilar artery and a CHECKING CLERK Active Medications Current Medications Medications (Trade) Dose Ordered Sig/Devin Route Start Time Stop Time Status Last Admin (NS Flush) 2 ml BID IV FLUSH 03/27/17 21:00 03/30/17 10:25 Sodium Chloride 2 ml 2 ml UNSCH PRN IV FLUSH 03/27/17 17:15 (Levaquin 750 Mg Premix Inj) 150 ml @ 100 mls/hr Q24H IV 03/27/17 20:00 03/29/17 20:54 (Lovenox Inj) 40 mg Q24H SQ 03/27/17 20:00 03/29/17 20:55 (Symbicort 160-4.5 Inh) 2 puff Q12HR INH 03/27/17 21:00 03/30/17 10:22 (Singulair) 10 mg HS PO 03/27/17 21:00 03/29/17 20:55 (Neurontin) 300 mg TID PO 03/28/17 09:00 03/30/17 16:53 (Tylenol) 500 mg Q4HR PO 03/28/17 12:00 03/30/17 00:12 (Xanax) 1 mg BID PO 03/28/17 21:00 03/30/17 10:20 (Tenormin) 50 mg HS PO 03/28/17 21:00 03/29/17 20:55 (Tessalon) 100 mg TID PRN PO 03/28/17 10:00 (Phenergan) 25 mg Q8HR PRN PO 03/28/17 10:00 (Zoloft) 100 mg DAILY PO 03/28/17 10:00 03/30/17 10:19 (Imitrex) 100 mg ONCE PRN PO 03/28/17 10:00 04/04/17 09:59 03/29/17 15:58 (Benadryl) 25 mg BID PRN PO 03/28/17 10:00 (Protonix) 20 mg DAILY PO 03/28/17 10:00 03/30/17 10:20 (Ventolin Hfa Inh) 2 puff DAILY PRN INH 03/28/17 10:20 ([place] 5-325 Mg) 1 tab Q4H PRN PO 03/29/17 16:45 03/30/17 16:53 (SoluMEDROL INJ) 40 mg TID IVP 03/30/17 18:00 03/30/17 16:53 Allergies Allergies Coded Allergies Codeine (Unverified Allergy, Mild, VOMITING, 03/28/17) Uncoded Allergies CODIENE ( Allergy, Mild, VOMITTING, 03/27/17) Review of Systems All other ROS: ROS reviewed as documented in chart Exam I&O / VS 03/29/17 03/29/17 03/30/17 15:00 23:00 07:00 Intake Total 360 ml 440 ml 540 ml Output Total 620 ml 680 ml Balance 360 ml -180 ml -140 ml Intake Oral 360 ml 440 ml 540 ml Output Urine Total 620 ml 680 ml # Voids 3 # Bowel Movements 0 0 Vital Signs Date Time Temp Pulse Resp B/P Pulse Ox O2 Delivery O2 Flow Rate FiO2 03/30/17 16:39 97 21 03/30/17 12:00 97.7 86 20 142/71 95 03/30/17 09:36 93 21 03/30/17 08:00 97.8 53 18 148/70 95 03/30/17 08:00 96 Room Air 21 03/30/17 08:00 74 03/30/17 04:00 98.0 67 18 157/73 96 03/30/17 00:00 98.6 72 20 154/70 94 03/29/17 20:55 93 03/29/17 20:00 62 03/29/17 20:00 97.9 78 18 140/74 98 03/29/17 20:00 Room Air Exam Comments unchanged neurologic exam Objective Micro and Labs Laboratory Tests Test 03/30/17 06:15 White Blood Count 11.8 Red Blood Count 3.98 Hemoglobin 11.7 Hematocrit 35.5 Mean Corpuscular Volume 89.2 Mean Corpuscular Hemoglobin 29.3 Mean Corpuscular Hemoglobin 32.9 Concent Red Cell Distribution Width 18.2 Platelet Count 132 Mean Platelet Volume 9.4 Neutrophils (%) (Auto) 82.6 Lymphocytes (%) (Auto) 12.0 Monocytes (%) (Auto) 4.8 Eosinophils (%) (Auto) 0.1 Basophils (%) (Auto) 0.5 Neutrophils # (Auto) 9.8 Lymphocytes # (Auto) 1.4 Monocytes # (Auto) 0.6 Eosinophils # (Auto) 0.0 Basophils # (Auto) 0.1 CBC Comment AUTO DIFF Differential Comment AUTO DIFF CONFIRMED Sodium Level 138 Potassium Level 3.8 Chloride Level 104 Carbon Dioxide Level 26.8 Anion Gap 7 Blood Urea Nitrogen 24 Creatinine 0.99 Estimat Glomerular Filtration 60 Rate Random Glucose 169 Calcium Level 8.8 Total Bilirubin 0.2 Aspartate Amino Transf 13 (AST/SGOT) Alanine Aminotransferase 21 (ALT/SGPT) Alkaline Phosphatase 65 Total Protein 6.6 Albumin 3.5 Date/Time Procedure Status Source Growth 03/29/17 09:30 Gram Stain - Final Resulted Sputum Expectorated Sputum 03/29/17 09:30 Sputum Culture - Preliminary Resulted Sputum Expectorated Sputum HEAVY GROWTH NORMAL RESPIRATORY KYLIE... 03/28/17 07:34 Influenza Types A,B Antigen (VALERY) - Final Complete Nasal Washing NEGATIVE FOR FLU A AND B ANTIGEN.... Matthew Mckenzie MD Mar 30, 2017 17:09
[2017-03-30] MEDS: MONTELUKAST SODIUM 10 MG TAB PO SCH (20:41)
[2017-03-30] MEDS: ATENOLOL 50 MG TAB PO SCH (20:41)
[2017-03-30] MEDS: ENOXAPARIN SODIUM 40 MG/0.4 ML SYRINGE SQ SCH (20:41)
[2017-03-30] MEDS: LEVOFLOXACIN 750 MG PREMIX INJ 150 ML IV SCH (20:41)
[2017-03-31] VITALS (9 sets, daily range): BP systolic 137–181; BP diastolic 65–81; PULSE 55–86; RESP 18–20; TEMP 97.1–97.8; O2SAT 84–96
[2017-03-31] MEDS: ACETAMINOPHEN/HYDROcodone 325 MG/5 MG TAB PO PRN ×5 (02:38→22:27)
[2017-03-31] MEDS: ACETAMINOPHEN 500 MG CPLT PO SCH ×6 (04:00→22:11)
[2017-03-31] MEDS: methylPREDNISolone SOD SUCC 125 MG/2 ML VIAL IVP SCH ×2 (08:11→12:53)
[2017-03-31] MEDS: SERTRALINE HCL 100 MG TAB PO SCH (08:19)
[2017-03-31] MEDS: SODIUM CHLORIDE 0.9% FLUSH 10 ML FLUSH IV FLUSH SCH ×2 (08:19→22:15)
[2017-03-31] MEDS: PANTOPRAZOLE SOD 20 MG DELAYED RELEASE TAB PO SCH (08:19)
[2017-03-31] MEDS: GABAPENTIN 300 MG CAP PO SCH ×3 (08:19→18:33)
[2017-03-31] MEDS: ALPRAZolam 1 MG TAB PO SCH ×2 (08:19→22:11)
[2017-03-31] MEDS: BUDESONIDE-FORMOTEROL 160/4.5 MCG INHALER INH SCH ×2 (08:21→22:19)
[2017-03-31] MEDS: RESP: ALBUTEROL 2.5 MG/IPRATROPIUM 0.5 MG NEB (SCH) INH ×4 (08:50→19:28)
--- NOTE | 2017-03-31 10:18 | HHI.PR ---
Subjective Remarks deferred entry - patient seen on 03/30 at 2 pm patient states sob is better denies fevers/chills no further episodes of slurred speech Objective Vitals Vital Signs Date Time Temp Pulse Resp B/P Pulse Ox O2 Delivery O2 Flow Rate FiO2 03/31/17 08:51 84 21 03/31/17 08:00 97.7 57 20 181/77 94 03/31/17 04:00 97.1 55 18 167/75 96 03/31/17 00:00 97.8 58 18 141/66 94 03/30/17 20:00 98.7 67 18 149/70 94 03/30/17 20:00 Room Air 03/30/17 16:39 97 21 03/30/17 16:00 98.0 60 20 151/68 97 03/30/17 12:00 97.7 86 20 142/71 95 I/O 03/30/17 03/30/17 03/30/17 03/31/17 03/31/17 03/31/17 07:00 15:00 23:00 07:00 15:00 23:00 Intake Total 540 ml 960 ml 360 ml 480 ml Output Total 680 ml Balance -140 ml 960 ml 360 ml 480 ml Intake Oral 540 ml 960 ml 360 ml 480 ml Output Urine Total 680 ml # Voids 2 3 2 # Bowel Movements 0 1 0 0 Result Diagram: 03/30/1715 03/30/17 0615 Objective Remarks AAOx3 NAD Mild diffuse expiratory wheezing, much improved from previous day. Medications and IVs Current Medications Medications (Trade) Dose Ordered Sig/Devin Route Start Time Stop Time Status Last Admin (NS Flush) 2 ml BID IV FLUSH 03/27/17 21:00 03/31/17 08:19 Sodium Chloride 2 ml 2 ml UNSCH PRN IV FLUSH 03/27/17 17:15 (Levaquin 750 Mg Premix Inj) 150 ml @ 100 mls/hr Q24H IV 03/27/17 20:00 03/30/17 20:41 (Lovenox Inj) 40 mg Q24H SQ 03/27/17 20:00 03/30/17 20:41 (Symbicort 160-4.5 Inh) 2 puff Q12HR INH 03/27/17 21:00 03/31/17 08:21 (Singulair) 10 mg HS PO 03/27/17 21:00 03/30/17 20:41 (Neurontin) 300 mg TID PO 03/28/17 09:00 03/31/17 08:19 (Tylenol) 500 mg Q4HR PO 03/28/17 12:00 03/31/17 08:19 (Xanax) 1 mg BID PO 03/28/17 21:00 03/31/17 08:19 (Tenormin) 50 mg HS PO 03/28/17 21:00 03/30/17 20:41 (Tessalon) 100 mg TID PRN PO 03/28/17 10:00 (Phenergan) 25 mg Q8HR PRN PO 03/28/17 10:00 (Zoloft) 100 mg DAILY PO 03/28/17 10:00 03/31/17 08:19 (Imitrex) 100 mg ONCE PRN PO 03/28/17 10:00 04/04/17 09:59 03/29/17 15:58 (Benadryl) 25 mg BID PRN PO 03/28/17 10:00 (Protonix) 20 mg DAILY PO 03/28/17 10:00 03/31/17 08:19 (Ventolin Hfa Inh) 2 puff DAILY PRN INH 03/28/17 10:20 ([place] 5-325 Mg) 1 tab Q4H PRN PO 03/29/17 16:45 03/31/17 06:44 (SoluMEDROL INJ) 40 mg TID IVP 03/30/17 18:00 03/31/17 08:11 A/P Problem List: (1) COPD exacerbation ICD Code: J44.1 Status: Acute (2) Acute hypoxemic respiratory failure ICD Code: J96.01 Status: Resolved (3) TIA (transient ischemic attack) ICD Code: G45.9 Status: Resolved Assessment and Plan 51-year-old female with past medical history significant for COPD who recently quit smoking 1 month ago, asthma, TRACY not on CPAP, morbid obesity, history of PSVT, anemia, anxiety, IBS, DDD cervical and lumbar spine and reported history of RA but not on any DMARDs who presents to [facility] ED with complaints of progressive shortness of breath and cough with productive sputum for the past week. Acute hypoxic respiratory failure COPD exacerbation H/O Asthma TRACY s/p sleep study 2-3 years ago, no CPAP use - CXR personally reviewed and no evidence of active cardiopulmonary disease - ABG ph 7.42, O2 sat 88, pCO2 44, pO2 58 - DuoNeb scheduled - Not on any maintenance therapy - sputum culture - pending - obtain influenza A/B antigen - negative - Pulmonology consulted. - COPD educator consulted - continue supplemental oxygen to maintain O2 sats above 92% -Continue IV Levaquin and continue Solumedrol taper as per pulmonology. Episode of slurred speech, blurry vision, confusion - possible TIA -Appreciate neurology recommendations. -CT of the head shows normal appearance of the brain. Minimal mucosal thickening in the maxillary sinuses. -MRI of the brain did not show any acute intracranial abnormality. -MRI of the brain shows posterior cerebral arteries. Tiny basilar artery. -Carotid artery ultrasound was negative for hemodynamically significant stenosis. 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 Continue to cycle cardiac enzymes - Monitor Hyperglycemia -hemoglobin A1c is 5.7 patient is prediabetic. Monitor Accu-Cheks and place on SSI with NovoLog. Will discuss regarding starting metformin. Leukocytosis - Likely steroid induced. Continue to monitor CBC. DVT prophylaxis - Lovenox 40 mg subcutaneous - Bilateral SCDs Other chronic medical conditions include IBS, GERD, RA, h/o seizures on Soma, arthritis, PSVT, anemia, RSD and DDD cervical and lumbar spine: Stable at this time and will continue home medications as indicated. Discharge Planning Possible discharge in 1-2 days pending clinical improvement in respiratory status, neurology clearance. Moose Herbert MD Mar 31, 2017 10:18
[2017-03-31] MEDS: SELENIUM SULFIDE 1% SHAMPOO 207 ML BOTTLE TOPICAL SCH (12:51)
[2017-03-31] MEDS: GRISEOFULVIN MICROSIZE SUSP 125 MG/5 ML 120 ML BTL PO SCH ×2 (12:53→18:34)
--- NOTE | 2017-03-31 18:03 | HHI.PR ---
Subjective Remarks sob and cough better denies cp/sob c/o itchy scalp with white scalp Objective Vitals Vital Signs Date Time Temp Pulse Resp B/P Pulse Ox O2 Delivery O2 Flow Rate FiO2 03/31/17 17:22 95 Room Air 03/31/17 17:22 59 03/31/17 16:58 95 03/31/17 12:00 97.8 64 20 137/65 94 03/31/17 08:51 84 21 03/31/17 08:00 97.7 57 20 181/77 94 03/31/17 04:00 97.1 55 18 167/75 96 03/31/17 00:00 97.8 58 18 141/66 94 03/30/17 20:00 98.7 67 18 149/70 94 03/30/17 20:00 Room Air I/O 03/30/17 03/30/17 03/30/17 03/31/17 03/31/17 03/31/17 07:00 15:00 23:00 07:00 15:00 23:00 Intake Total 540 ml 960 ml 360 ml 480 ml Output Total 680 ml Balance -140 ml 960 ml 360 ml 480 ml Intake Oral 540 ml 960 ml 360 ml 480 ml Output Urine Total 680 ml # Voids 2 3 2 # Bowel Movements 0 1 0 0 Result Diagram: 03/30/17 0615 03/30/17 0615 Imaging Last Impressions Head Magnetic Resonance Angiography 03/28/17 0000 Signed Impressions: Service Date/Time: Tuesday, March 28, 2017 13:48 - CONCLUSION: posterior cerebral arteries. Tiny basilar artery, likely a developmental appearance Denys Martinez MD Brain MRI 03/28/17 0000 Signed Impressions: Service Date/Time: Tuesday, March 28, 2017 13:48 - CONCLUSION: 1. No acute intracranial abnormality. 2. Mucoperiosteal thickening within the maxillary sinuses. Paco Shankar MD Chest CT 03/27/17 1823 Signed Impressions: Service Date/Time: Tuesday, March 28, 2017 18:56 - CONCLUSION: 1. Basilar linear subsegmental atelectasis versus scarring. 2. Hepatic steatosis. Eze Michel MD Chest X-Ray 03/27/17 1249 Signed Impressions: Service Date/Time: March 13:21 - CONCLUSION: Normal examination. Fabián A. Sevigny, MD Head CT 03/27/17 0000 Signed Impressions: Service Date/Time: March 18:31 - CONCLUSION: 1. Normal appearance of the brain. 2. Minimal mucosal thickening in the maxillary sinuses. Eze Michel MD Carotid Artery Ultrasound 03/27/17 0000 Signed Impressions: Service Date/Time: March 19:01 - CONCLUSION: 1. No evidence for hemodynamically significant stenosis. Eze Michel MD Objective Remarks AAOx3 NAD Mild diffuse expiratory wheezing, much improved from previous day. Medications and IVs Current Medications Medications (Trade) Dose Ordered Sig/Devin Route Start Time Stop Time Status Last Admin (NS Flush) 2 ml BID IV FLUSH 03/27/17 21:00 03/31/17 08:19 Sodium Chloride 2 ml 2 ml UNSCH PRN IV FLUSH 03/27/17 17:15 (Levaquin 750 Mg Premix Inj) 150 ml @ 100 mls/hr Q24H IV 03/27/17 20:00 03/30/17 20:41 (Lovenox Inj) 40 mg Q24H SQ 03/27/17 20:00 03/30/17 20:41 (Symbicort 160-4.5 Inh) 2 puff Q12HR INH 03/27/17 21:00 03/31/17 08:21 (Singulair) 10 mg HS PO 03/27/17 21:00 03/30/17 20:41 (Neurontin) 300 mg TID PO 03/28/17 09:00 03/31/17 12:53 (Tylenol) 500 mg Q4HR PO 03/28/17 12:00 03/31/17 16:28 (Xanax) 1 mg BID PO 03/28/17 21:00 03/31/17 08:19 (Tenormin) 50 mg HS PO 03/28/17 21:00 03/30/17 20:41 (Tessalon) 100 mg TID PRN PO 03/28/17 10:00 (Phenergan) 25 mg Q8HR PRN PO 03/28/17 10:00 (Zoloft) 100 mg DAILY PO 03/28/17 10:00 03/31/17 08:19 (Imitrex) 100 mg ONCE PRN PO 03/28/17 10:00 04/04/17 09:59 03/29/17 15:58 (Benadryl) 25 mg BID PRN PO 03/28/17 10:00 (Protonix) 20 mg DAILY PO 03/28/17 10:00 03/31/17 08:19 (Ventolin Hfa Inh) 2 puff DAILY PRN INH 03/28/17 10:20 ([place] 5-325 Mg) 1 tab Q4H PRN PO 03/29/17 16:45 03/31/17 12:52 (SoluMEDROL INJ) 40 mg TID IVP 03/30/17 18:00 03/31/17 12:53 ([place] 1% Shampoo) 1 applic DAILY TOPICAL 03/31/17 12:00 03/31/17 12:51 ([place]-V Liq) 500 mg BIDPC PO 03/31/17 11:30 03/31/17 12:53 Urinary Catheter: No Vascular Central Line Catheter: No A/P Problem List: (1) COPD exacerbation ICD Code: J44.1 Status: Acute (2) Acute hypoxemic respiratory failure ICD Code: J96.01 Status: Resolved (3) TIA (transient ischemic attack) ICD Code: G45.9 Status: Resolved Assessment and Plan 51-year-old female with past medical history significant for COPD who recently quit smoking 1 month ago, asthma, TRACY not on CPAP, morbid obesity, history of PSVT, anemia, anxiety, IBS, DDD cervical and lumbar spine and reported history of RA but not on any DMARDs who presents to [facility] ED with complaints of progressive shortness of breath and cough with productive sputum for the past week. Acute hypoxic respiratory failure COPD exacerbation H/O Asthma TRACY s/p sleep study 2-3 years ago, no CPAP use - CXR personally reviewed and no evidence of active cardiopulmonary disease - ABG ph 7.42, O2 sat 88, pCO2 44, pO2 58 - DuoNeb scheduled - Not on any maintenance therapy - sputum culture - pending - obtain influenza A/B antigen - negative - Pulmonology consulted. - COPD educator consulted - continue supplemental oxygen to maintain O2 sats above 92% -Continue IV Levaquin and continue Solumedrol taper. Episode of slurred speech, blurry vision, confusion - possible TIA -Appreciate neurology recommendations. -CT of the head shows normal appearance of the brain. Minimal mucosal thickening in the maxillary sinuses. -MRI of the brain did not show any acute intracranial abnormality. -MRI of the brain shows posterior cerebral arteries. Tiny basilar artery. -Carotid artery ultrasound was negative for hemodynamically significant stenosis. 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 Continue to cycle cardiac enzymes - Monitor Hyperglycemia -hemoglobin A1c is 5.7 patient is prediabetic. Monitor Accu-Cheks and place on SSI with NovoLog. Will discuss regarding starting metformin. Leukocytosis - Likely steroid induced. Continue to monitor CBC. Tinea Capitis - Patient c/o of itchy scalp. Has white plaque on scalp on exam. - Suspect Tinea Capitis. Will start Griseofulvin 500 mg po BID which will need to be taken for a total of 6 weeks. Explained to the patient that she will have to follow with her primary care physician and LFTs will have to be monitored by him. LFTs normal prior to start here. - I will also start the patient on selenium sulfide shampoo. DVT prophylaxis - Lovenox 40 mg subcutaneous - Bilateral SCDs Other chronic medical conditions include IBS, GERD, RA, h/o seizures on Soma, arthritis, PSVT, anemia, RSD and DDD cervical and lumbar spine: Stable at this time and will continue home medications as indicated. Discharge Planning Anticipate discharge in a.m. Moose Herbert MD Mar 31, 2017 18:03
--- NOTE | 2017-03-31 20:29 | HHI.PR ---
Subjective Remarks Better today .She still has wheezing. No fever. Off O2 and sat 95. Chest CT done.Noted. Objective Vital Signs Date Time Temp Pulse Resp B/P Pulse Ox O2 Delivery O2 Flow Rate FiO2 03/31/17 17:22 95 Room Air 03/31/17 17:22 59 03/31/17 16:58 95 03/31/17 16:00 97.6 58 20 152/81 93 03/31/17 12:00 97.8 64 20 137/65 94 03/31/17 08:51 84 21 03/31/17 08:00 97.7 57 20 181/77 94 03/31/17 04:00 97.1 55 18 167/75 96 03/31/17 00:00 97.8 58 18 141/66 94 I/O 03/30/17 03/30/17 03/30/17 03/31/17 03/31/17 03/31/17 06:59 14:59 22:59 06:59 14:59 22:59 Intake Total 540 ml 960 ml 360 ml 480 ml 720 ml Output Total 680 ml Balance -140 ml 960 ml 360 ml 480 ml 720 ml Intake Oral 540 ml 960 ml 360 ml 480 ml 720 ml Output Urine Total 680 ml # Voids 2 3 2 2 # Bowel Movements 0 1 0 0 1 Result Diagram: 03/30/1715 03/30/17 06 Objective Remarks GENERAL: This obese middle-aged white female who is alert and anxious. HEENT: Head normocephalic. Pupils are reactive. Nasal mucosa clear Throat is dry. The ears no inflammation. NECK: Supple. No bruits. CHEST: Distant breath sounds with occ wheezes throughout both lung pierre. Prolonged expirations. No crackles on either side. HEART: Sounds are irregular, S1-S2. No murmur. No S3. ABDOMEN: The abdomen is soft, protuberant. No masses or organomegaly or tenderness. Bowel sounds active. EXTREMITIES: No edema. Decreased peripheral pulses. Reflexes are 1 + with no gross motor deficits. NEURO: Cranial nerves grossly intact. SKIN: No lesions are noted. The patient is alert, oriented, cooperative. Assessment and Plan Assessment and Plan IMPRESSION 1. Asthmatic bronchitis. 2. COPD with acute exacerbation. 3. Exogenous obesity. 4. Obstructive sleep apnea syndrome. 5. Hypertension. Plan ; 1. Continue Levaquin and switch to PO 500 mg daily 2. Taper solumedrol to 40 mg IV q12h 3. Nebs qid , duoneb 4. D/C O2 5. Symbicort 160/4.5 Mcg , 2puffs bid 6. Smoking cessation, Discussed 7. Switch to PO meds in am Mariela Recinos MD Mar 31, 2017 20:29
[2017-03-31] MEDS: LEVOFLOXACIN 500 MG TAB PO SCH (22:10)
[2017-03-31] MEDS: ATENOLOL 50 MG TAB PO SCH (22:12)
[2017-03-31] MEDS: methylPREDNISolone SOD SUCC 125 MG/2 ML VIAL IV SCH (22:14)
[2017-03-31] MEDS: MONTELUKAST SODIUM 10 MG TAB PO SCH (22:14)
[2017-03-31] MEDS: ENOXAPARIN SODIUM 40 MG/0.4 ML SYRINGE SQ SCH (22:18)
[2017-04-01] VITALS (9 sets, daily range): BP systolic 154–169; BP diastolic 72–86; PULSE 49–78; RESP 18–20; TEMP 97.5–98.3; O2SAT 94–96
[2017-04-01] MEDS: ACETAMINOPHEN 500 MG CPLT PO SCH ×6 (00:50→21:46)
[2017-04-01] MEDS: ACETAMINOPHEN/HYDROcodone 325 MG/5 MG TAB PO PRN ×5 (02:49→21:47)
[2017-04-01] MEDS: GRISEOFULVIN MICROSIZE SUSP 125 MG/5 ML 120 ML BTL PO SCH ×2 (08:10→18:45)
[2017-04-01] MEDS: SERTRALINE HCL 100 MG TAB PO SCH (08:11)
[2017-04-01] MEDS: GABAPENTIN 300 MG CAP PO SCH ×3 (08:12→17:05)
[2017-04-01] MEDS: PANTOPRAZOLE SOD 20 MG DELAYED RELEASE TAB PO SCH (08:12)
[2017-04-01] MEDS: ALPRAZolam 1 MG TAB PO SCH ×2 (08:12→21:46)
[2017-04-01] MEDS: SELENIUM SULFIDE 1% SHAMPOO 207 ML BOTTLE TOPICAL SCH (08:14)
[2017-04-01] MEDS: methylPREDNISolone SOD SUCC 125 MG/2 ML VIAL IV SCH (08:14)
[2017-04-01] MEDS: BUDESONIDE-FORMOTEROL 160/4.5 MCG INHALER INH SCH ×2 (08:17→21:50)
[2017-04-01] MEDS: SODIUM CHLORIDE 0.9% FLUSH 10 ML FLUSH IV FLUSH SCH ×2 (08:18→21:47)
[2017-04-01] MEDS: RESP: ALBUTEROL 2.5 MG/IPRATROPIUM 0.5 MG NEB (SCH) INH ×4 (08:56→20:48)
--- NOTE | 2017-04-01 12:44 | HHI.PR ---
Subjective Remarks Better today .Less wheezing. No fever. Off O2 and sat 97. Chest CT done.Noted. Wants nebs for home Objective Vital Signs Date Time Temp Pulse Resp B/P Pulse Ox O2 Delivery O2 Flow Rate FiO2 04/01/17 09:08 Room Air 04/01/17 08:58 94 21 04/01/17 08:01 49 04/01/17 08:01 97.9 52 20 154/72 95 04/01/17 05:03 160/86 04/01/17 04:00 97.8 60 20 95 04/01/17 00:00 97.8 68 20 154/75 96 03/31/17 20:00 Room Air 03/31/17 20:00 97.7 71 20 168/81 94 03/31/17 20:00 86 03/31/17 17:22 95 Room Air 03/31/17 17:22 59 03/31/17 16:58 95 03/31/17 16:00 97.6 58 20 152/81 93 I/O 03/31/17 03/31/17 03/31/17 04/01/17 04/01/17 04/01/17 06:59 14:59 22:59 06:59 14:59 22:59 Intake Total 480 ml 720 ml 480 ml Balance 480 ml 720 ml 480 ml Intake Oral 480 ml 720 ml 480 ml # Voids 2 2 2 # Bowel Movements 0 1 0 Result Diagram: 03/30/1715 03/30/17614 Objective Remarks GENERAL: This obese middle-aged white female who is alert and anxious. HEENT: Head normocephalic. Pupils are reactive. Nasal mucosa clear Throat is dry. The ears no inflammation. NECK: Supple. No bruits. CHEST: Distant breath sounds with occ wheezes over both lung pierre. Prolonged expirations. No crackles on either side. HEART: Sounds are irregular, S1-S2. No murmur. No S3. ABDOMEN: The abdomen is soft, protuberant. No masses or organomegaly or tenderness. Bowel sounds active. EXTREMITIES: No edema. Decreased peripheral pulses. Reflexes are 1 + with no gross motor deficits. NEURO: No deficits SKIN: No lesions are noted. The patient is alert, oriented, cooperative. Assessment and Plan Assessment and Plan IMPRESSION 1. Asthmatic bronchitis. 2. COPD with acute exacerbation. 3. Exogenous obesity. 4. Obstructive sleep apnea syndrome. 5. Hypertension. Plan ; 1. Continue Levaquin PO 500 mg daily X5 2. D/C solumedrol 3. Nebs qid , duoneb 4. Prednisone 20 mg bid and taper over 3 weeks 5. Symbicort 160/4.5 Mcg , 2puffs bid 6. Smoking cessation, Discussed 7. Home anytime Mariela Recinos MD Apr 01, 2017 12:44
[2017-04-01] MEDS ORDERED: LISINOPRIL 20 MG TAB PO SCH (15:00)
--- NOTE | 2017-04-01 15:19 | HHI.PR ---
Subjective Remarks sob and cough much improved still has itching in scalp denies fevers/chills concerned about elevated blood pressure Objective Vitals Vital Signs Date Time Temp Pulse Resp B/P Pulse Ox O2 Delivery O2 Flow Rate FiO2 04/01/17 12:02 97.5 67 20 169/79 94 04/01/17 09:08 Room Air 04/01/17 08:58 94 21 04/01/17 08:01 49 04/01/17 08:01 97.9 52 20 154/72 95 04/01/17 05:03 160/86 04/01/17 04:00 97.8 60 20 95 04/01/17 00:00 97.8 68 20 154/75 96 03/31/17 20:00 Room Air 03/31/17 20:00 97.7 71 20 168/81 94 03/31/17 20:00 86 03/31/17 17:22 95 Room Air 03/31/17 17:22 59 03/31/17 16:58 95 03/31/17 16:00 97.6 58 20 152/81 93 I/O 03/31/17 03/31/17 03/31/17 04/01/17 04/01/17 04/01/17 06:59 14:59 22:59 06:59 14:59 22:59 Intake Total 480 ml 720 ml 480 ml Balance 480 ml 720 ml 480 ml Intake Oral 480 ml 720 ml 480 ml # Voids 2 2 2 # Bowel Movements 0 1 0 Result Diagram: 03/30/17 0615 03/30/17 0615 Imaging Last Impressions Head Magnetic Resonance Angiography 03/28/17 0000 Signed Impressions: Service Date/Time: Tuesday, March 28, 2017 13:48 - CONCLUSION: posterior cerebral arteries. Tiny basilar artery, likely a developmental appearance Denys Martinez MD Brain MRI 03/28/17 0000 Signed Impressions: Service Date/Time: Tuesday, March 28, 2017 13:48 - CONCLUSION: 1. No acute intracranial abnormality. 2. Mucoperiosteal thickening within the maxillary sinuses. Paco Shankar MD Chest CT 03/27/17 1823 Signed Impressions: Service Date/Time: Tuesday, March 28, 2017 18:56 - CONCLUSION: 1. Basilar linear subsegmental atelectasis versus scarring. 2. Hepatic steatosis. Eze Michel MD Chest X-Ray 03/27/17 1249 Signed Impressions: Service Date/Time: March 13:21 - CONCLUSION: Normal examination. Fabián Mesa MD Head CT 03/27/17 0000 Signed Impressions: Service Date/Time: March 18:31 - CONCLUSION: 1. Normal appearance of the brain. 2. Minimal mucosal thickening in the maxillary sinuses. Eze Michel MD Carotid Artery Ultrasound 03/27/17 0000 Signed Impressions: Service Date/Time: March 19:01 - CONCLUSION: 1. No evidence for hemodynamically significant stenosis. Eze Michel MD Objective Remarks AAOx3 NAD Mild diffuse expiratory wheezing, much improved from previous day. Medications and IVs Current Medications Medications (Trade) Dose Ordered Sig/Devin Route Start Time Stop Time Status Last Admin (NS Flush) 2 ml BID IV FLUSH 03/27/17 21:00 04/01/17 21:47 (NS Flush) 2 ml UNSCH PRN IV FLUSH 03/27/17 17:15 (Lovenox Inj) 40 mg Q24H SQ 03/27/17 20:00 04/01/17 21:46 (Symbicort 160-4.5 Inh) 2 puff Q12HR INH 03/27/17 21:00 04/01/17 21:50 (Singulair) 10 mg HS PO 03/27/17 21:00 04/01/17 21:46 (Neurontin) 300 mg TID PO 03/28/17 09:00 04/01/17 17:05 (Tylenol) 500 mg Q4HR PO 03/28/17 12:00 04/01/17 21:46 (Xanax) 1 mg BID PO 03/28/17 21:00 04/01/17 21:46 (Tenormin) 50 mg HS PO 03/28/17 21:00 04/01/17 21:47 (Tessalon) 100 mg TID PRN PO 03/28/17 10:00 (Phenergan) 25 mg Q8HR PRN PO 03/28/17 10:00 (Zoloft) 100 mg DAILY PO 03/28/17 10:00 04/01/17 08:11 (Imitrex) 100 mg ONCE PRN PO 03/28/17 10:00 04/04/17 09:59 03/29/17 15:58 (Benadryl) 25 mg BID PRN PO 03/28/17 10:00 (Protonix) 20 mg DAILY PO 03/28/17 10:00 04/01/17 08:12 (Ventolin Hfa Inh) 2 puff DAILY PRN INH 03/28/17 10:20 ([place] 5-325 Mg) 1 tab Q4H PRN PO 03/29/17 16:45 04/01/17 21:47 (Selsun 1% Shampoo) 1 applic DAILY TOPICAL 03/31/17 12:00 04/01/17 08:14 (Grifulvin-V Liq) 500 mg BIDPC PO 03/31/17 11:30 04/01/17 18:45 (Levaquin) 500 mg HS PO 03/31/17 22:30 04/01/17 21:46 (Norvasc) 10 mg DAILY PO 04/02/17 09:00 (Deltasone) 20 mg BID PO 04/01/17 21:00 04/01/17 21:47 (Prinivil) 20 mg DAILY PO 04/01/17 15:00 04/01/17 15:16 A/P Problem List: (1) COPD exacerbation ICD Code: J44.1 Status: Acute (2) Acute hypoxemic respiratory failure ICD Code: J96.01 Status: Resolved (3) TIA (transient ischemic attack) ICD Code: G45.9 Status: Resolved (4) Uncontrolled hypertension ICD Code: I10 Status: Acute Assessment and Plan 51-year-old female with past medical history significant for COPD who recently quit smoking 1 month ago, asthma, TRACY not on CPAP, morbid obesity, history of PSVT, anemia, anxiety, IBS, DDD cervical and lumbar spine and reported history of RA but not on any DMARDs who presents to [facility] ED with complaints of progressive shortness of breath and cough with productive sputum for the past week. Acute hypoxic respiratory failure COPD exacerbation H/O Asthma TRACY s/p sleep study 2-3 years ago, no CPAP use - CXR personally reviewed and no evidence of active cardiopulmonary disease - ABG ph 7.42, O2 sat 88, pCO2 44, pO2 58 - DuoNeb scheduled - Not on any maintenance therapy - sputum culture - pending - obtain influenza A/B antigen - negative - Pulmonology consulted. - COPD educator consulted - continue supplemental oxygen to maintain O2 sats above 92% -DC IV Solumedrol and start prednsione taper. DC IV levaquin and start po levaquin. Episode of slurred speech, blurry vision, confusion - possible TIA -Appreciate neurology recommendations. -CT of the head shows normal appearance of the brain. Minimal mucosal thickening in the maxillary sinuses. -MRI of the brain did not show any acute intracranial abnormality. -MRI of the brain shows posterior cerebral arteries. Tiny basilar artery. -Carotid artery ultrasound was negative for hemodynamically significant stenosis. 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 Continue to cycle cardiac enzymes - Monitor Hyperglycemia -hemoglobin A1c is 5.7 patient is prediabetic. Monitor Accu-Cheks and place on SSI with NovoLog. Will discuss regarding starting metformin. Leukocytosis - Likely steroid induced. Continue to monitor CBC. Tinea Capitis - Patient c/o of itchy scalp. Has white plaque on scalp on exam. - Suspect Tinea Capitis. Will start Griseofulvin 500 mg po BID which will need to be taken for a total of 6 weeks. Explained to the patient that she will have to follow with her primary care physician and LFTs will have to be monitored by him. LFTs normal prior to start here. - Continue selenium sulfide shampoo. HTN - Patient with persistently elevated bp. Will start amlodipine and lisinopril. DVT prophylaxis - Lovenox 40 mg subcutaneous - Bilateral SCDs Other chronic medical conditions include IBS, GERD, RA, h/o seizures on Soma, arthritis, PSVT, anemia, RSD and DDD cervical and lumbar spine: Stable at this time and will continue home medications as indicated. Discharge Planning Anticipate discharge in a.m. Moose Herbert MD Apr 01, 2017 15:19
[2017-04-01] MEDS: LEVOFLOXACIN 500 MG TAB PO SCH (21:46)
[2017-04-01] MEDS: MONTELUKAST SODIUM 10 MG TAB PO SCH (21:46)
[2017-04-01] MEDS: ENOXAPARIN SODIUM 40 MG/0.4 ML SYRINGE SQ SCH (21:46)
[2017-04-01] MEDS: ATENOLOL 50 MG TAB PO SCH (21:47)
[2017-04-01] MEDS: predniSONE 20 MG TAB PO SCH (21:47)
[2017-04-02] VITALS (7 sets, daily range): BP systolic 141–154; BP diastolic 69–82; PULSE 57–69; RESP 18–20; TEMP 97.6–98.3; O2SAT 93–96
[2017-04-02] MEDS: ACETAMINOPHEN 500 MG CPLT PO SCH ×4 (00:18→11:55)
[2017-04-02] MEDS: ACETAMINOPHEN/HYDROcodone 325 MG/5 MG TAB PO PRN ×3 (02:07→12:14)
[2017-04-02] MEDS ORDERED: PILL SPLITTER OTHER PRN (08:00)
[2017-04-02] MEDS: BUDESONIDE-FORMOTEROL 160/4.5 MCG INHALER INH SCH (08:54)
[2017-04-02] MEDS: ALPRAZolam 1 MG TAB PO SCH (08:55)
[2017-04-02] MEDS: SODIUM CHLORIDE 0.9% FLUSH 10 ML FLUSH IV FLUSH SCH (08:55)
[2017-04-02] MEDS: SERTRALINE HCL 100 MG TAB PO SCH (08:55)
[2017-04-02] MEDS: PANTOPRAZOLE SOD 20 MG DELAYED RELEASE TAB PO SCH (08:56)
[2017-04-02] MEDS: GRISEOFULVIN MICROSIZE SUSP 125 MG/5 ML 120 ML BTL PO SCH (08:56)
[2017-04-02] MEDS: GABAPENTIN 300 MG CAP PO SCH ×2 (08:56→12:13)
[2017-04-02] MEDS: predniSONE 20 MG TAB PO SCH (08:56)
[2017-04-02] MEDS: SELENIUM SULFIDE 1% SHAMPOO 207 ML BOTTLE TOPICAL SCH (08:57)
[2017-04-02] MEDS ORDERED: LISINOPRIL 20 MG TAB PO SCH (09:00)
[2017-04-02] MEDS: RESP: ALBUTEROL 2.5 MG/IPRATROPIUM 0.5 MG NEB (SCH) INH ×2 (09:10→13:40)
--- NOTE | 2017-04-02 13:08 | HHI.PR ---
Subjective Remarks BP is better today .No wheezing. No fever. Off O2 and sat 97. Chest CT done.Noted. Wants nebs for home Objective Vital Signs Date Time Temp Pulse Resp B/P Pulse Ox O2 Delivery O2 Flow Rate FiO2 04/02/17 12:00 98.3 62 20 146/69 94 04/02/17 10:08 18 04/02/17 09:13 96 21 04/02/17 09:05 69 04/02/17 08:53 18 04/02/17 08:00 98.3 57 20 141/73 93 04/02/17 04:00 Room Air 04/02/17 04:00 98.2 67 18 154/82 95 04/02/17 00:00 97.6 59 18 153/80 94 04/02/17 00:00 Room Air 04/01/17 20:51 96 04/01/17 20:00 97.8 63 18 155/73 94 04/01/17 20:00 Room Air 04/01/17 20:00 78 04/01/17 16:02 98.3 61 18 159/73 95 I/O 04/01/17 04/01/17 04/01/17 04/02/17 04/02/17 04/02/17 07:00 15:00 23:00 07:00 15:00 23:00 Intake Total 380 ml 720 ml 480 ml Balance 380 ml 720 ml 480 ml Intake Oral 380 ml 720 ml 480 ml # Voids 3 2 2 # Bowel Movements 1 0 1 Result Diagram: 03/30/1715 03/30/17 0615 Objective Remarks GENERAL: This obese middle-aged white female who is alert and anxious. HEENT: Head normocephalic. Pupils are reactive. Nasal mucosa clear Throat is dry. The ears no inflammation. NECK: Supple. No bruits. CHEST: Distant breath sounds . Prolonged expirations. No crackles on either side. HEART: Sounds are irregular, S1-S2. No murmur. No S3. ABDOMEN: The abdomen is soft, protuberant. No masses or organomegaly or tenderness. Bowel sounds active. EXTREMITIES: No edema. Decreased peripheral pulses. Reflexes are 1 + with no gross motor deficits. NEURO: No deficits SKIN: No lesions are noted. The patient is alert, oriented, cooperative. Assessment and Plan Assessment and Plan IMPRESSION 1. Asthmatic bronchitis. 2. COPD with acute exacerbation. 3. Exogenous obesity. 4. Obstructive sleep apnea syndrome. 5. Hypertension. Plan ; 1. D/C Levaquin 2. D/C solumedrol 3. Nebs qid , duoneb 4. Prednisone 20 mg bid and taper over 3 weeks 5. Symbicort 160/4.5 Mcg , 2puffs bid 6. Smoking cessation, Discussed 7. Home today. Will see as OP in 3 weeks Mariela Recinos MD Apr 02, 2017 13:07
[2017-04-02] MEDS ORDERED: PRED20 PO (14:24)
[2017-04-02] MEDS ORDERED: AMLO10 PO (14:24)
[2017-04-02] MEDS ORDERED: MONT10TA4 PO (14:24)
[2017-04-02] MEDS ORDERED: LISI-515 PO (14:24)
--- NOTE | 2017-04-02 14:25 | HHI.DCPOC ---
Discharge Care Plan Diagnosis: (1) COPD exacerbation (2) TIA (transient ischemic attack) (3) Acute hypoxemic respiratory failure (4) Uncontrolled hypertension Goals to Promote Your Health * To prevent worsening of your condition and complications * To maintain your health at the optimal level Directions to Meet Your Goals Take your medications as prescribed Follow your dietary instruction Follow activity as directed Keep your appointments as scheduled Take your immunizations and boosters as scheduled If your symptoms worsen call your PCP, if no PCP go to Urgent Care Center or Emergency Room Smoking is Dangerous to Your Health. Avoid second hand smoke Call the 24-hour hour crisis hotline for domestic abuse at Moose Herbert MD Apr 02, 2017 14:25
[2017-04-02] MEDS ORDERED: METO50TA11 PO (14:26)
[2017-04-02] MEDS ORDERED: GRIS125S2 PO (14:30)
[2017-04-02] MEDS ORDERED: SELS1SHA12 TOPICAL (14:30)
== END 2017-04-02 15:58 | disposition home or self-care (01) | DRG 190 ==
LOC: NEPC 12:37 → NEDA 16:08 → OBSVTOIN 17:16 → N04B 21:43
PROVIDERS: ADMIT Hospitalist; ATTEND Hospitalist
DX: J44.1 Chronic obstructive pulmonary disease with (acute) exacerbation (principal); J96.01 Acute respiratory failure with hypoxia; Z68.43 Body mass index [BMI] 50.0-59.9, adult; E66.01 Morbid (severe) obesity due to excess calories; I10 Essential (primary) hypertension; B35.0 Tinea barbae and tinea capitis; D72.829 Elevated white blood cell count, unspecified; G43.909 Migraine, unspecified, not intractable, without status migrainosus; G47.33 Obstructive sleep apnea (adult) (pediatric); F41.9 Anxiety disorder, unspecified; M50.30 Other cervical disc degeneration, unspecified cervical region; M51.36 Other intervertebral disc degeneration, lumbar region; G89.29 Other chronic pain; M06.9 Rheumatoid arthritis, unspecified; Z86.73 Personal history of transient ischemic attack (TIA), and cerebral infarction without residual deficits; R73.9 Hyperglycemia, unspecified; R07.89 Other chest pain; E78.5 Hyperlipidemia, unspecified; Z87.891 Personal history of nicotine dependence
CPT/HCPCS: 36600; 70450; 70544; 70553; 71010; 71250; 80048; 80053; 82550; 82785; 82805; 83036; 83880; 84484; 85025; 85610; 85730; 86403; 87070; 87205; 87804; 93005; 93306; 93880; 94640; 94664; A9579; J1650; J1956; J2930; J7512; J7613

== ENCOUNTER 2018-02-09 19:51 | Emergency (ER) | payer MEDICARE ==
[~2018-02-09 19:51] MED LIST changes: +ALBU0.08 NEB; -ALBU2.5I INH; -ALLE10TA5 PO; +AMLO10 PO; -ATEN-100 PO; +BENA25TA6 PO; -CARI350T19 PO; -CEFU1TAB43 PO; +GABA300C5 PO; +GRIS125S3 PO; +IMIT100T PO; -LEVA500T PO; +LISI-515 PO; -LORT7.5T3 PO; +MAPA500T PO; +METO1TAB9 PO; +MONT10TA4 PO; +OMEP20TA93 PO; -OMPR20CCR PO; -PRED10PA PO; +PRED20 PO; +PROM25TA10 PO; +SELS1SHA12 TOPICAL; +SERT-129 PO; -SUMA50 PO; +VENTAER INH; -ZOLO50TA PO
[2018-02-09 20:46] VITALS: BP 175/87; PULSE 92; RESP 20; TEMP 98.8; O2SAT 97
--- NOTE | 2018-02-09 21:11 | PD ---
HPI Chief Complaint: Respiratory Symptoms Time Seen by Provider: 21:04 Travel History International Travel<30 days: No Contact w/Intl Traveler<30days: No Traveled to known affect area: No History of Present Illness HPI 52-year-old female with history of COPD presents for evaluation. For the past 2 -3 days she has had wheezing, cough, congestion. Cough is productive with green and yellow sputum. Symptoms are moderate, aggravated by coughing, not alleviated with her at home Ventolin and albuterol nebulizer. Denies fevers, chills, chest pain, abdominal pain, lower extremity edema, recent travel. No other complaints at this time. PFSH Past Medical History Anemia: Yes Arthritis: Yes (RA) Asthma: Yes Anxiety: Yes Heart Rhythm Problems: Yes (HX OF PSVT) Cancer: No Cardiovascular Problems: Yes Congestive Heart Failure: No COPD: Yes Coronary Artery Disease: No Diabetes: No Patient Takes Glucophage: No Diminished Hearing: No Endocrine: No Gastrointestinal Disorders: Yes (irritable bowel syndrone) GERD: Yes Genitourinary: No Hypertension: Yes Immune Disorder: No Musculoskeletal: Yes Neurologic: Yes Reproductive: No Respiratory: Yes (COPD) Immunizations Current: Yes Seizures: Yes (caused by soma) Sleep Apnea: Yes Tetanus Vaccination: < 5 Years Influenza Vaccination: No ?: Not Menopausal: Yes : 4 Para: 2 Miscarriage: 1 : 1 Ovarian Cysts: Yes Dilation and Curettage (D&C): Yes Tubal Ligation: Yes (1994) Past Surgical History Neurologic Surgery: Yes (CYST ON THE CEREBELLUM ) Tonsillectomy: Yes Social History Alcohol Use: No Tobacco Use: Yes Substance Use: No Allergies-Medications (Allergen,Severity, Reaction): Coded Allergies: codeine (Unverified Allergy, Mild, VOMITING, 02/09/18) Uncoded Allergies: CODIENE (Allergy, Mild, VOMITTING, 03/27/17) Reported Meds & Prescriptions Reported Meds & Active Scripts Active Prednisone 20 Mg Tab 20 Mg PO BID 5 Days Albuterol Neb (Albuterol Sulfate) 2.5 Mg/3 Ml Neb 2.5 Mg NEB Q4HR NEB While awake Azithromycin 250 Mg Tab 250 Mg PO DAILY 4 Days Selsun Blue Daily (Selenium Sulfide) 1 % Sha 1 Applic TOPICAL DAILY Griseofulvin Microsize Liq (Griseofulvin Microsize) 125 Mg/5 Ml Susp 500 Mg PO BIDPC take for a total of 6 weeks. Metoprolol Succinate ER 24 HR (Metoprolol Succinate) 50 Mg Tab 50 Mg PO HS Prednisone 20 Mg Tab 20 Mg PO DIRECTED 20 MG twice a day x 3 days, then 20 MG daily x 3 days, then 10 MG daily x 3 days Montelukast (Montelukast Sodium) 10 Mg Tab 10 Mg PO HS Lisinopril 20 Mg Tab 30 Mg PO DAILY Norvasc (Amlodipine Besylate) 10 Mg Tab 10 Mg PO DAILY Reported Albuterol Neb (Albuterol Sulfate) 2.5 Mg/3 Ml Neb 2.5 Mg NEB Q4HR NEB PRN Alprazolam 1 Mg Tab 1 Mg PO BID Omeprazole 20 Mg Tab 20 Mg PO DAILY Sertraline (Sertraline HCl) 100 Mg Tab 100 Mg PO DAILY Imitrex (Sumatriptan Succinate) 100 Mg Tab 100 Mg PO ONCE PRN If a satisfactory response has not been obtained at 2 hours, a second dose may be administered Ventolin Hfa 18 GM Inh (Albuterol Sulfate) 90 Mcg/Act Aer 2 Puff INH Q4-6H PRN Gabapentin 300 Mg Cap 300 Mg PO TID Phenergan (Promethazine HCl) 25 Mg Tablet 25 Mg PO Q8HR PRN Tessalon Perles (Benzonatate) 100 Mg Cap 100 Mg PO TID PRN Benadryl Allergy (Diphenhydramine HCl) 25 Mg Tablet 25 Mg PO BID PRN Mapap (Acetaminophen) 500 Mg Tab 500 Mg PO Q4HR Review of Systems Except as stated in HPI: all other systems reviewed are Neg Physical Exam Narrative GENERAL: Well-developed well-nourished female no acute distress SKIN: Warm and dry. HEAD: Atraumatic. Normocephalic. EYES: Pupils equal and round. No scleral icterus. No injection or drainage. ENT: No nasal bleeding or discharge. Mucous membranes pink and moist. NECK: Trachea midline. No JVD. CARDIOVASCULAR: Regular rate and rhythm. No murmur appreciated. RESPIRATORY: No accessory muscle use. Diffuse wheezing bilaterally. GASTROINTESTINAL: Abdomen soft, non-tender, nondistended. Hepatic and splenic margins not palpable. MUSCULOSKELETAL: No obvious deformities. No clubbing. No cyanosis. No edema. NEUROLOGICAL: Awake and alert. No obvious cranial nerve deficits. Motor grossly within normal limits. Normal speech. PSYCHIATRIC: Appropriate mood and affect; insight and judgment normal. Data Data Last Documented VS Vital Signs Date Time Temp Pulse Resp B/P (MAP) Pulse Ox O2 Delivery O2 Flow Rate FiO2 02/09/18 20:46 98.8 92 20 175/87 (116) 97 Orders Orders Complete Blood Count With Diff (02/09/18 21:08) Basic Metabolic Panel (Bmp) (02/09/18 21:08) Iv Access Insert/Monitor (02/09/18 21:08) Chest, Single Ap (02/09/18 21:08) Methylprednisolone So Succ Inj (Solumedr (02/09/18 21:15) Albuterol-Ipratropium Neb (Duoneb Neb) (02/09/18 21:15) Azithromycin (Zithromax) (02/09/18 22:30) Ed Discharge Order (02/09/18 23:02) Labs Laboratory Tests Test 02/09/18 21:37 02/09/18 22:52 Blood Urea Nitrogen 7 MG/DL Creatinine 0.95 MG/DL Random Glucose 83 MG/DL Calcium Level 9.1 MG/DL Sodium Level 141 MEQ/L Potassium Level 3.7 MEQ/L Chloride Level 104 MEQ/L Carbon Dioxide Level 26.2 MEQ/L Anion Gap 11 MEQ/L Estimat Glomerular Filtration Rate 62 ML/MIN White Blood Count 8.1 TH/MM3 Red Blood Count 4.92 MIL/MM3 Hemoglobin 13.4 GM/DL Hematocrit 40.6 % Mean Corpuscular Volume 82.5 FL Mean Corpuscular Hemoglobin 27.2 PG Mean Corpuscular Hemoglobin Concent 32.9 % Red Cell Distribution Width 15.5 % Platelet Count 152 TH/MM3 Mean Platelet Volume 9.1 FL Neutrophils (%) (Auto) 52.3 % Lymphocytes (%) (Auto) 37.8 % Monocytes (%) (Auto) 4.7 % Eosinophils (%) (Auto) 4.6 % Basophils (%) (Auto) 0.6 % Neutrophils # (Auto) 4.2 TH/MM3 Lymphocytes # (Auto) 3.1 TH/MM3 Monocytes # (Auto) 0.4 TH/MM3 Eosinophils # (Auto) 0.4 TH/MM3 Basophils # (Auto) 0.0 TH/MM3 CBC Comment DIFF FINAL Differential Comment MDM Medical Decision Making Medical Screen Exam Complete: Yes Emergency Medical Condition: Yes Medical Record Reviewed: Yes Differential Diagnosis COPD exacerbation, bronchitis, pneumonia, reactive airway disease Narrative Course Plan is for lab work, chest x-ray. The patient be given duo nebs and Solu- Medrol treatment. Lab work imaging studies are reassuring. Upon reexamination she feels improved. At this point time the plan is to start the patient on azithromycin and prescribed prescriptions for prednisone, albuterol nebulizer refill. Discussed signs and symptoms that would warrant returning to the emergency room. Stable for discharge. Diagnosis Primary Impression: COPD exacerbation Additional Instructions: Medication as prescribed. Follow-up with primary care physician. Return for any emergent medical conditions. Med/Other Pt SpecificInfo: Prescription(s) given Scripts Prednisone (Prednisone) 20 Mg Tab 20 MG PO BID for 5 Days, #10 TAB 0 Refills Prov: Monika Atkinson DO 02/09/18 Albuterol Neb (Albuterol Neb) 2.5 Mg/3 Ml Neb 2.5 MG NEB Q4HR NEB for Breathing Treatment, #60 NEBULE 0 Refills While awake Prov: Monika Atkinson DO 02/09/18 Azithromycin (Azithromycin) 250 Mg Tab 250 MG PO DAILY for Infection for 4 Days, #4 TAB 0 Refills Prov: Monika Atkinson DO 02/09/18 Disposition: 01 DISCHARGE HOME Condition: Stable Ronald Thompson Feb 09, 2018 21:11
[2018-02-09] MEDS ORDERED: methylPREDNISolone SOD SUCC 125 MG/2 ML VIAL IV PUSH ONE (21:15)
[2018-02-09] MEDS: RESP: ALBUTEROL 2.5 MG/IPRATROPIUM 0.5 MG NEB (SCH) INH ×3 (21:30→21:46)
--- NOTE | 2018-02-09 21:36 | RADRPT ---
EXAM DATE: 02/09/2018 9:32 PM EDT AGE/SEX: 52 years / Female INDICATIONS: Short of breath CLINICAL DATA: This is the patient's initial encounter. Patient reports that signs and symptoms have been present for 2 days and indicates a pain score of 0/10. MEDICAL/SURGICAL HISTORY: Hypertension. Cardiovascular disease. None. COMPARISON: [facility] [place], CHEST SINGLE AP, 03/27/2017. . FINDINGS: A single AP view of the chest demonstrates the lungs to be symmetrically aerated without evidence of mass, infiltrate or effusion. The cardiomediastinal contours are unremarkable. Osseous structures a re intact. CONCLUSION: No acute findings. Electronically signed by: Branden Rincon MD 02/09/2018 9:34 PM EDT
[2018-02-09 22:20] LABS: BICARBONATE 26.2 MEQ/L (21.0-32.0); CALCIUM 9.1 MG/DL (8.5-10.1); CREATININE 0.95 MG/DL (0.50-1.00)
[2018-02-09] MEDS ORDERED: AZITHROMYCIN 250 MG TAB PO ONE (22:30)
[2018-02-09] MEDS ORDERED: PRED20 PO (22:39)
[2018-02-09] MEDS ORDERED: ALBU0.08 NEB (22:39)
[2018-02-09] MEDS ORDERED: AZIT250T3 PO (22:39)
--- NOTE | 2018-02-09 22:43 | PD ---
Physical Exam Narrative I, Dr. Atkinson, have reviewed the advance practice practitioner's documentation and am in agreement, met with the patient face to face, made the diagnosis, and the medical decision making was done by me. *My assessment and Findings: COPD exacerbation vs. bronchitis vs. pneumonia 52yo F with COPD here with sob for a few days. BMP unremarkable. CXR showed no acute finding. O2 sat 97% on RA. Pt has bilateral wheezing but feels better after methylprednisolone 125mg IV and duonebs x3. Labs reviewed, no leukocytosis. H/H normal. BMP unremarkable. CXR negative. Pt feels better and saturating well. Return precautions given. Data Data Last Documented VS Vital Signs Date Time Temp Pulse Resp B/P (MAP) Pulse Ox O2 Delivery O2 Flow Rate FiO2 02/09/18 20:46 98.8 92 20 175/87 (116) 97 Orders Orders Complete Blood Count With Diff (02/09/18 21:08) Basic Metabolic Panel (Bmp) (02/09/18 21:08) Iv Access Insert/Monitor (02/09/18 21:08) Chest, Single Ap (02/09/18 21:08) Methylprednisolone So Succ Inj (Solumedr (02/09/18 21:15) Albuterol-Ipratropium Neb (Duoneb Neb) (02/09/18 21:15) Azithromycin (Zithromax) (02/09/18 22:30) Ed Discharge Order (02/09/18 23:02) Labs Laboratory Tests Test 02/09/18 21:37 02/09/18 22:52 Blood Urea Nitrogen 7 MG/DL Creatinine 0.95 MG/DL Random Glucose 83 MG/DL Calcium Level 9.1 MG/DL Sodium Level 141 MEQ/L Potassium Level 3.7 MEQ/L Chloride Level 104 MEQ/L Carbon Dioxide Level 26.2 MEQ/L Anion Gap 11 MEQ/L Estimat Glomerular Filtration Rate 62 ML/MIN White Blood Count 8.1 TH/MM3 Red Blood Count 4.92 MIL/MM3 Hemoglobin 13.4 GM/DL Hematocrit 40.6 % Mean Corpuscular Volume 82.5 FL Mean Corpuscular Hemoglobin 27.2 PG Mean Corpuscular Hemoglobin Concent 32.9 % Red Cell Distribution Width 15.5 % Platelet Count 152 TH/MM3 Mean Platelet Volume 9.1 FL Neutrophils (%) (Auto) 52.3 % Lymphocytes (%) (Auto) 37.8 % Monocytes (%) (Auto) 4.7 % Eosinophils (%) (Auto) 4.6 % Basophils (%) (Auto) 0.6 % Neutrophils # (Auto) 4.2 TH/MM3 Lymphocytes # (Auto) 3.1 TH/MM3 Monocytes # (Auto) 0.4 TH/MM3 Eosinophils # (Auto) 0.4 TH/MM3 Basophils # (Auto) 0.0 TH/MM3 CBC Comment DIFF FINAL Differential Comment MDM Supervised Visit with FER: Yes Diagnosis Primary Impression: COPD exacerbation Scripts Prednisone (Prednisone) 20 Mg Tab 20 MG PO BID for 5 Days, #10 TAB 0 Refills Prov: Monika Atkinson DO 02/09/18 Albuterol Neb (Albuterol Neb) 2.5 Mg/3 Ml Neb 2.5 MG NEB Q4HR NEB for Breathing Treatment, #60 NEBULE 0 Refills While awake Prov: Monika Atkinson DO 02/09/18 Azithromycin (Azithromycin) 250 Mg Tab 250 MG PO DAILY for Infection for 4 Days, #4 TAB 0 Refills Prov: Monika Atkinson DO 02/09/18 Monika Atkinson DO Feb 09, 2018 22:43
[2018-02-09 22:59] LABS: AUTOMATED NEUTROPHIL # 4.2 TH/MM3 (1.8-7.7); BASOPHIL % 0.6 % (0.0-2.0); EOSINOPHIL # 0.4 TH/MM3 (0-0.4); EOSINOPHIL % 4.6 % (0.0-4.0); HEMATOCRIT 40.6 % (35.0-46.0); HEMOGLOBIN 13.4 GM/DL (11.6-15.3); LYMPH % 37.8 % (9.0-44.0); LYMPHOCYTE # 3.1 TH/MM3 (1.0-4.8); MEAN CELL VOLUME 82.5 FL (80.0-100.0); MEAN CORPUSCULAR HEMOGLOBIN 27.2 PG (27.0-34.0); MEAN CORPUSCULAR HGB CONC 32.9 % (32.0-36.0); MEAN PLATELET VOLUME 9.1 FL (7.0-11.0); MONO % 4.7 % (0.0-8.0); MONOCYTE # 0.4 TH/MM3 (0-0.9); NEUT % 52.3 % (16.0-70.0); PLATELET COUNT 152 TH/MM3 (150-450); RED BLOOD COUNT 4.92 MIL/MM3 (4.00-5.30); RED CELL DISTRIBUTION WIDTH 15.5 % (11.6-17.2); WHITE BLOOD COUNT 8.1 TH/MM3 (4.0-11.0)
== END 2018-02-09 23:38 | disposition home or self-care (01) ==
LOC: NEPD 19:51
DX: J44.1 Chronic obstructive pulmonary disease with (acute) exacerbation (principal); I10 Essential (primary) hypertension; Z72.0 Tobacco use
CPT/HCPCS: 71045; 80048; 85025; 94640; 94664; 96374; 99284; J2930